=== PATIENT | male | born 1950 | race Caucasian/White ===

== ENCOUNTER 2018-01-10 13:44 | Inpatient (IN) | payer BC, MEDICARE ==
[2018-01-10] VITALS (10 sets, daily range): BP systolic 103–175; BP diastolic 58–94; PULSE 80–167; RESP 15–20; TEMP 97.9; O2SAT 94–97
[~2018-01-10] VITALS: Ht 170.2 cm; Wt 149.2 kg
[2018-01-10 14:25] LABS: AUTOMATED NEUTROPHIL # 13.9 TH/MM3 (1.8-7.7); BASOPHIL # 0.1 TH/MM3 (0-0.2); BASOPHIL % 0.8 % (0.0-2.0); EOSINOPHIL % 0.2 % (0.0-4.0); HEMATOCRIT 44.7 % (39.0-51.0); HEMOGLOBIN 15.2 GM/DL (13.0-17.0); LYMPH % 11.6 % (9.0-44.0); MEAN CELL VOLUME 86.1 FL (80.0-100.0); MEAN CORPUSCULAR HEMOGLOBIN 29.3 PG (27.0-34.0); MEAN PLATELET VOLUME 8.6 FL (7.0-11.0); MONO % 7.2 % (0.0-8.0); MONOCYTE # 1.2 TH/MM3 (0-0.9); NEUT % 80.2 % (16.0-70.0); PLATELET COUNT 364 TH/MM3 (150-450); RED BLOOD COUNT 5.19 MIL/MM3 (4.50-5.90); RED CELL DISTRIBUTION WIDTH 14.1 % (11.6-17.2); WHITE BLOOD COUNT 17.4 TH/MM3 (4.0-11.0)
--- NOTE | 2018-01-10 14:25 | PD ---
HPI Chief Complaint: Cardiac Complaint Time Seen by Provider: 14:01 Travel History International Travel<30 days: No Contact w/Intl Traveler<30days: No Traveled to known affect area: No History of Present Illness HPI The patient is a 67-year-old male who presents to the emergency department for chest pain, palpitations, mild shortness of breath. The patient recently traveled from [place] to the local area for the car races. The patient states that he had mild chest discomfort in the left upper chest yesterday while moving his leg is down to the car. He then had similar symptoms once again today while pumping gas. He felt like his heart was beating fast, he has some left-sided chest pressure, and mild shortness of breath. The patient states he is currently chest pain-free upon arrival, denies any dizziness, lightheadedness, shortness of breath upon arrival. He denies any known history of coronary artery disease, hypertension, hyperlipidemia, diabetes, or tobacco use. The patient does take a baby aspirin daily as well as Synthroid. Symptoms are moderate. He denies any history of pulmonary most of her DVT. He does not have a local primary physician. PFS Past Medical History Narrative Medical Hypothyroidism, prostate cancer Past Surgical History Narrative Surgical right shoulder surgery, tonsillectomy Social History Tobacco Use: No Allergies-Medications (Allergen,Severity, Reaction): Coded Allergies: No Known Allergies (Unverified , 01/10/18) Reported Meds & Prescriptions Reported Meds & Active Scripts Active Reported Metformin (Metformin HCl) 1,000 Mg Tab 1,000 Mg PO BIDPC Lisinopril-Hctz 20-12.5 Mg Tab 1 Tab PO DAILY Levothyroxine (Levothyroxine Sodium) 125 Mcg Tab 125 Mcg PO DAILY Adrienne Allergy (Fexofenadine HCl) 180 Mg Tab 180 Mg PO DAILY Flonase Nasal [place] (Fluticasone Nasal [place]) 50 Mcg/Act [place] 100 Mcg EACH NARE BID Review of Systems Except as stated in HPI: all other systems reviewed are Neg General / Constitutional: No: Fever HENT: No: Lightheadedness Cardiovascular: Positive: Chest Pain or Discomfort, Palpitations, Tachycardia, No: Diaphoresis Respiratory: Positive: Shortness of Breath Gastrointestinal: No: Nausea, Vomiting Musculoskeletal: No: Edema Neurologic: No: Dizziness Physical Exam Narrative GENERAL: Awake, alert, pleasant 67-year-old male who appears his stated age and is in no acute respiratory distress. SKIN: Focused skin assessment warm/dry. HEAD: Atraumatic. Normocephalic. EYES: Pupils equal and round. No scleral icterus. No injection or drainage. ENT: No nasal bleeding or discharge. Mucous membranes pink and moist. NECK: Trachea midline. No JVD. CARDIOVASCULAR: Regular, tachycardic with a heart rate in the 160s. RESPIRATORY: No accessory muscle use. Clear to auscultation. Breath sounds equal bilaterally. GASTROINTESTINAL: Abdomen soft, obese, no rebound tenderness. MUSCULOSKELETAL: No obvious deformities. No clubbing. No cyanosis. No edema. NEUROLOGICAL: Awake and alert. No obvious cranial nerve deficits. Motor grossly within normal limits. Normal speech. PSYCHIATRIC: Appropriate mood and affect; insight and judgment normal. Data Data Last Documented VS Vital Signs Date Time Temp Pulse Resp B/P (MAP) Pulse Ox O2 Delivery O2 Flow Rate FiO2 01/10/18 16:13 162 109/55 01/10/18 14:41 15 95 Room Air 01/10/18 13:45 97.9 Orders Orders Electrocardiogram (01/10/18 13:50) Basic Metabolic Panel (Bmp) (01/10/18 13:50) B-Type Natriuretic Peptide (01/10/18 13:50) Ckmb (Isoenzyme) Profile (01/10/18 13:50) Complete Blood Count With Diff (01/10/18 13:50) Magnesium (Mg) (01/10/18 13:50) Prothrombin Time / Inr (Pt) (01/10/18 13:50) Act Partial Throm Time (Ptt) (01/10/18 13:50) Troponin I (01/10/18 13:50) Chest, Pa & Lat (01/10/18 13:50) Ecg Monitoring (01/10/18 14:17) Bilateral Bp Monitoring (01/10/18 14:17) Iv Access Insert/Monitor (01/10/18 14:17) Oximetry (01/10/18 14:17) Oxygen Administration (01/10/18 14:17) Aspirin Chew (Aspirin Chew) (01/10/18 14:30) Sodium Chloride 0.9% Flush (Ns Flush) (01/10/18 14:30) Sodium Chlorid 0.9% 500 Ml Inj (Ns 500 M (01/10/18 14:30) Ct Pulmonary Angiogram (01/10/18 14:17) Diltiazem Inj (Cardizem Inj) (01/10/18 14:30) CKMB (01/10/18 14:16) CKMB% (01/10/18 14:16) Diltiazem Inj (Cardizem Inj) (01/10/18 15:45) Sodium Chloride 0.9% Flush (Ns Flush) (01/10/18 15:45) Iohexol 350 Inj (Omnipaque 350 Inj) (01/10/18 15:54) Diltiazem Inj (Cardizem Inj) (01/10/18 16:30) Sodium Chlorid 0.9% 500 Ml Inj (Ns 500 M (01/10/18 16:30) Admit Order (Ed Use Only) (01/10/18 17:15) Admit Order (Ed Use Only) (01/10/18 17:20) Labs Laboratory Tests Test 01/10/18 14:16 White Blood Count 17.4 TH/MM3 Red Blood Count 5.19 MIL/MM3 Hemoglobin 15.2 GM/DL Hematocrit 44.7 % Mean Corpuscular Volume 86.1 FL Mean Corpuscular Hemoglobin 29.3 PG Mean Corpuscular Hemoglobin Concent 34.0 % Red Cell Distribution Width 14.1 % Platelet Count 364 TH/MM3 Mean Platelet Volume 8.6 FL Neutrophils (%) (Auto) 80.2 % Lymphocytes (%) (Auto) 11.6 % Monocytes (%) (Auto) 7.2 % Eosinophils (%) (Auto) 0.2 % Basophils (%) (Auto) 0.8 % Neutrophils # (Auto) 13.9 TH/MM3 Lymphocytes # (Auto) 2.0 TH/MM3 Monocytes # (Auto) 1.2 TH/MM3 Eosinophils # (Auto) 0.0 TH/MM3 Basophils # (Auto) 0.1 TH/MM3 CBC Comment DIFF FINAL Differential Comment Prothrombin Time 10.3 SEC Prothromb Time International Ratio 1.0 RATIO Activated Partial Thromboplast Time 21.4 SEC Blood Urea Nitrogen 28 MG/DL Creatinine 1.33 MG/DL Random Glucose 388 MG/DL Calcium Level 8.6 MG/DL Magnesium Level 1.6 MG/DL Sodium Level 136 MEQ/L Potassium Level 4.1 MEQ/L Chloride Level 101 MEQ/L Carbon Dioxide Level 25.6 MEQ/L Anion Gap 9 MEQ/L Estimat Glomerular Filtration Rate 54 ML/MIN Total Creatine Kinase 107 U/L Creatine Kinase MB 8.3 NG/ML Troponin I 0.39 NG/ML B-Type Natriuretic Peptide 410 PG/ML MDM Medical Decision Making Medical Screen Exam Complete: Yes Emergency Medical Condition: Yes Medical Record Reviewed: Yes Interpretation(s) EKG reveals atrial flutter with 2:1 block at a rate in the 160s versus sinus tachycardia. RSR prime in V1. S1Q3. EKG #2 reveals atrial flutter versus accelerated junctional rhythm. RSR prime consistent with right bundle-branch block. Last Impressions Chest X-Ray 01/10/18 1350 Signed Impressions: Service Date/Time: Wednesday, January 10, 2018 14:24 - CONCLUSION: No acute disease. Jason Vega Jr., MD Laboratory Tests Test 01/10/18 14:16 White Blood Count 17.4 TH/MM3 Red Blood Count 5.19 MIL/MM3 Hemoglobin 15.2 GM/DL Hematocrit 44.7 % Mean Corpuscular Volume 86.1 FL Mean Corpuscular Hemoglobin 29.3 PG Mean Corpuscular Hemoglobin Concent 34.0 % Red Cell Distribution Width 14.1 % Platelet Count 364 TH/MM3 Mean Platelet Volume 8.6 FL Neutrophils (%) (Auto) 80.2 % Lymphocytes (%) (Auto) 11.6 % Monocytes (%) (Auto) 7.2 % Eosinophils (%) (Auto) 0.2 % Basophils (%) (Auto) 0.8 % Neutrophils # (Auto) 13.9 TH/MM3 Lymphocytes # (Auto) 2.0 TH/MM3 Monocytes # (Auto) 1.2 TH/MM3 Eosinophils # (Auto) 0.0 TH/MM3 Basophils # (Auto) 0.1 TH/MM3 CBC Comment DIFF FINAL Differential Comment Prothrombin Time 10.3 SEC Prothromb Time International Ratio 1.0 RATIO Activated Partial Thromboplast Time 21.4 SEC Blood Urea Nitrogen 28 MG/DL Creatinine 1.33 MG/DL Random Glucose 388 MG/DL Calcium Level 8.6 MG/DL Magnesium Level 1.6 MG/DL Sodium Level 136 MEQ/L Potassium Level 4.1 MEQ/L Chloride Level 101 MEQ/L Carbon Dioxide Level 25.6 MEQ/L Anion Gap 9 MEQ/L Estimat Glomerular Filtration Rate 54 ML/MIN Total Creatine Kinase 107 U/L Creatine Kinase MB 8.3 NG/ML Troponin I 0.39 NG/ML B-Type Natriuretic Peptide 410 PG/ML CT pulmonary angiogram reveals no acute intrathoracic process. In particular no pulmonary emboli. Significant coronary artery and atherosclerotic calcifications. Differential Diagnosis Differential diagnosis includes atrial flutter with RVR, atrial fibrillation with RVR, sinus tachycardia, tachycardia arrhythmia, electrolyte abnormality, pulmonary embolism. Narrative Course IV was established, labs are drawn and sent, and the patient was placed on cardiac telemetry monitoring and continuous pulse oximetry monitoring. EKG was ordered and interpreted. Chest x-ray was obtained. The patient was administered Cardizem [address] pulmonary angiogram was ordered as the patient has been traveling with new tachycardia, atrial flutter versus sinus tachycardia. Chest x-rays unremarkable. The patient's heart rate initially came down into the 90s and 90s after Cardizem, however, elevated once again into the 90s and 100s. Cardizem drip was started, however, patient's heart rate went back into the 160s. The patient was administered a second dose of IV fluids and Cardizem. CT pulmonary angiogram was negative. The patient's troponin is positive at 0.39. The patient did receive aspirin in the emergency department. The patient will be admitted for new-onset atrial flutter with RVR and elevated troponin. Critical Care Narrative Aggregate critical care time was 35 minutes. Time to perform other separately billable procedures was not included in the critical care time. My time did not include minutes spent treating any other patients simultaneously or on activities that did not directly contribute to the patient's treatment. The services I provided to this patient were to treat and/or prevent clinically significant deterioration that could result in: Pulmonary edema, cardiomyopathy , arrhythmia, flash pulmonary edema. I provided critical care services requiring my management, as noted below: Chart data review, documentation time, medication orders and management, vital sign assessments/reviewing monitor data, ordering and reviewing lab tests, ordering and interpreting/reviewing x-rays and diagnostic studies, care of the patient and discussion of the patient with the admitting physicians. Physician Communication Physician Communication The on-call medical service was paged for admission. I discussed the patient with Dr. Delvis Biswas who agrees with admission. Diagnosis Primary Impression: Atrial flutter with rapid ventricular response Additional Impressions: Elevated troponin Hyperglycemia Admitting Information Admitting Physician Requests: Admit Condition: Stable Rogerio Tyler MD Jan 10, 2018 14:24
[2018-01-10] MEDS ORDERED: SODIUM CHLORIDE 0.9% FLUSH 10 ML FLUSH IVF PRN (14:30)
[2018-01-10] MEDS ORDERED: SODIUM CHLORID 0.9% 500 ML INJ 500 ML IV ONE ×2 (14:30→16:30)
[2018-01-10] MEDS ORDERED: DILTIAZEM HCL 25 MG/5 ML VIAL IV ONE ×2 (14:30→16:30)
[2018-01-10] MEDS ORDERED: ASPIRIN 81 MG CHEW TAB PO ONE (14:30)
[2018-01-10] MEDS ORDERED: FEXO15TA PO (14:31)
[2018-01-10] MEDS ORDERED: FLUT1SPR5 EACH NARE (14:31)
--- NOTE | 2018-01-10 14:39 | RADRPT ---
EXAM DATE/TIME: 01/10/2018 14:24 [facility] COMPARISON: No previous studies available for comparison. INDICATIONS : Chest pressure and discomfort since yesterday. MEDICAL HISTORY : None. SURGICAL HISTORY : None. ENCOUNTER: Initial ACUITY: 2 days PAIN SCORE: 3/10 LOCATION: Bilateral chest FINDINGS: PA and lateral views of the chest demonstrate the lungs to be symmetrically aerated without evidence of mass, infiltrate or effusion. The cardiomediastinal contours are unremarkable. Mild scoliotic cur vature. Osseous structures are intact. CONCLUSION: No acute disease. Jason Vega Jr., MD on January 10, 2018 at 14:35 Board Certified Radiologist. This report was verified electronically.
[2018-01-10 14:40] LABS: PROTHROMBIN TIME - PATIENT 10.3 SEC (9.8-11.6)
[2018-01-10] MEDS ORDERED: LISI20TA PO (14:40)
[2018-01-10] MEDS ORDERED: METF1000 PO (14:40)
[2018-01-10] MEDS ORDERED: LEVO125T4 PO (14:40)
[2018-01-10 15:26] LABS: BICARBONATE 25.6 MEQ/L (21.0-32.0); BLOOD UREA NITROGEN 28 MG/DL (7-18); CALCIUM 8.6 MG/DL (8.5-10.1); CHLORIDE 101 MEQ/L (98-107); CREATININE 1.33 MG/DL (0.60-1.30); GLOMERULAR FILTRATION RATE 54 ML/MIN (>89); GLUCOSE,RANDOM 388 MG/DL (74-106); MAGNESIUM 1.6 MG/DL (1.5-2.5); SODIUM (NA) 136 MEQ/L (136-145); TROPONIN I 0.39 NG/ML (0.02-0.05)
[2018-01-10] MEDS ORDERED: SODIUM CHLORIDE 0.9% FLUSH 10 ML FLUSH IV FLUSH PRN ×2 (15:45→18:15)
[2018-01-10] MEDS ORDERED: DILTIAZEM INJ 125 MG in SODIUM CHLORIDE 0.9% INJ 100 ML IV PRN (15:45)
[2018-01-10] MEDS ORDERED: IOHEXOL 350 MG/ML 10 ML VIAL (for RAD DIAG) IVCONTRAST ONE (15:54)
--- NOTE | 2018-01-10 16:13 | RADRPT ---
EXAM DATE/TIME: 01/10/2018 15:50 [facility] COMPARISON: No previous studies available for comparison. INDICATIONS : Left chest pressure. IV CONTRAST: 74 cc Omnipaque 350 (iohexol) IV RADIATION DOSE: 10.98 CTDIvol (mGy) MEDICAL HISTORY : None SURGICAL HISTORY : None. ENCOUNTER: Initial ACUITY: 2 days PAIN SCALE: 4/10 LOCATION: Left chest TECHNIQUE: Volumetric scanning of the chest was performed using a pulmonary embolism protocol MIP images were re constructed. Using automated exposure control and adjustment of the mA and/or kV according to patien t size, radiation dose was kept as low as reasonably achievable to obtain optimal diagnostic quality images. DICOM format image data is available electronically for review and comparison. Follow-up recommendations for detected pulmonary nodules are based at a minimum on nodule size and pa tient risk factors according to Fleischner Society Guidelines. FINDINGS: PULMONARY ARTERIES: No filling defects are seen in the pulmonary arteries through the segmental level. LUNGS: There is no consolidation or pneumothorax . No concerning pulmonary nodule is visualized. PLEURAE: There is no pleural thickening or pleural effusion. MEDIASTINUM: There is good visualization of the great vessels of the middle mediastinum. No evidence of mediastin al or hilar adenopathy/mass. Heart is normal in size without pericardial effusion. Coronary artery an d aortic atherosclerotic calcifications noted. MUSCULOSKELETAL: Within normal limits for patient age. MISCELLANEOUS: A degenerative thoracic spine. CONCLUSION: 1. No acute intrathoracic process. In particular, no pulmonary emboli. 2. Significant coronary artery and aortic atherosclerotic calcifications. Jason Vega Jr., MD on January 10, 2018 at 16:04 Board Certified Radiologist. This report was verified electronically.
[2018-01-10] MEDS ORDERED: MORPHINE SULFATE 2 MG/ML INJ IV PUSH PRN ×2 (18:15)
[2018-01-10] MEDS ORDERED: ONDANSETRON HCL 4 MG/2 ML VIAL IVP PRN (18:15)
[2018-01-10] MEDS ORDERED: MAGNESIUM HYDROXIDE SUSP 30 ML CUP PO PRN (18:15)
[2018-01-10] MEDS ORDERED: NALOXONE HCL 0.4 MG/ML AMP IV PUSH PRN (18:15)
--- NOTE | 2018-01-10 19:39 | HHI.HP ---
[facility] Primary [facility] Physician Unknown Admission Diagnosis atrial flutter with RVR, elevated troponin Diagnoses: (1) Atrial flutter with rapid ventricular response Diagnosis: Principal (2) Elevated troponin Diagnosis: Principal (3) Hyperglycemia Diagnosis: Principal Travel History International Travel<30 Days: No Contact w/Intl Traveler <30 Da: No Traveled to Known Affected Are: No History of Present Illness Mr. Garcia is a 67-year-old male. He came into the hospital after having recurrent episodes of tachycardia, palpitations, and chest tightness. He is found to be in atrial flutter with RVR. He started on a diltiazem drip. Diltiazem drip has assisted in slowing his heart rate when seen in the ER his heart rate is between 80 and 100 bpm. Today his knowledge she has no past cardiac history. She has not had arrhythmias before. No prior history of A. fib or atrial flutter. He does have hypothyroidism at baseline. His thyroid has not been a problem recently. No recent changes in medications. When seen he is not having any chest pain. He is having improvement with rate control on IV diltiazem. Review of Systems Constitutional: DENIES: Fatigue, Fever, Chills, Night Sweats Eyes: DENIES: Blurred vision, Diplopia, Eye inflammation, Eye pain Ears, nose, mouth, throat: DENIES: Tinnitus, Hearing loss, Vertigo, Nasal discharge Respiratory: DENIES: Cough, Wheezing, Shortness of breath Cardiovascular: COMPLAINS OF: Chest pain, Palpitations, Dyspnea on Exertion, DENIES: Syncope Gastrointestinal: DENIES: Abdominal pain, Black stools, Bloody stools, Constipation Musculoskeletal: DENIES: Joint pain, Muscle aches, Stiffness Integumentary: DENIES: Abnormal pigmentation, Nail changes, Pruritus, Rash Hematologic/lymphatic: DENIES: Bruising, Lymphadenopathy Immunologic/allergic: DENIES: Eczema, Urticaria Neurologic: DENIES: Abnormal gait, Headache, Paresthesias Psychiatric: DENIES: Anxiety, Confusion, Hallucinations Past Family Social History Past Medical History Hypothyroidism History of prostate cancer Diabetes mellitus type 2 Past Surgical History Right shoulder surgery Tonsillectomy Reported Medications Reported Meds & Active Scripts Active Reported Metformin (Metformin HCl) 1,000 Mg Tab 1,000 Mg PO BIDPC Lisinopril-Hctz 20-12.5 Mg Tab 1 Tab PO DAILY Levothyroxine (Levothyroxine Sodium) 125 Mcg Tab 125 Mcg PO DAILY Adrienne Allergy (Fexofenadine HCl) 180 Mg Tab 180 Mg PO DAILY Flonase Nasal [place] (Fluticasone Nasal [place]) 50 Mcg/Act [place] 100 Mcg EACH NARE BID Allergies: Coded Allergies: No Known Allergies (Unverified , 01/10/18) Active Ordered Medications Administered Medications Medications (Trade) Dose Ordered Sig/Hien Route PRN Reason Start Time Stop Time Status Last Admin Dose Admin Diltiazem HCl 125 mg/Sodium Chloride 125 ml @ 5 mls/hr TITRATE PRN IV tachycardia 01/10/18 15:45 01/10/18 16:13 Family History Myocardial infarction mother Myocardial infarction in father Social History No smoking No drinking of alcohol No illicit drug abuse Physical Exam Vital Signs Vital Signs Date Time Temp Pulse Resp B/P (MAP) Pulse Ox O2 Delivery O2 Flow Rate FiO2 01/10/18 19:15 89 18 96 Room Air 01/10/18 19:14 89 18 122/64 (83) 96 Room Air 01/10/18 18:00 88 114/65 (81) 01/10/18 17:00 80 116/58 (77) 01/10/18 16:30 146 129/62 (84) 01/10/18 16:13 162 109/55 01/10/18 15:15 86 15 133/61 (85) 94 Room Air 01/10/18 14:41 86 15 125/61 (82) 95 Room Air 01/10/18 13:45 97.9 167 20 175/78 (110) 95 Room Air Physical Exam GENERAL: NAD, A&Ox3 HEAD: Normocephalic. NECK: Supple, trachea midline. No lymphadenopathy. EYES: No scleral icterus. No injection or drainage. CARDIOVASCULAR: Tachycardia, regular rhythm without murmurs, gallops, or rubs. RESPIRATORY: Breath sounds equal bilaterally. No accessory muscle use. GASTROINTESTINAL: Abdomen soft, non-tender, nondistended. MUSCULOSKELETAL: No cyanosis, or edema. SKIN: Warm and dry. NEURO: No focal neurological deficitis. Laboratory Laboratory Tests Test 01/10/18 14:16 White Blood Count 17.4 Red Blood Count 5.19 Hemoglobin 15.2 Hematocrit 44.7 Mean Corpuscular Volume 86.1 Mean Corpuscular Hemoglobin 29.3 Mean Corpuscular Hemoglobin Concent 34.0 Red Cell Distribution Width 14.1 Platelet Count 364 Mean Platelet Volume 8.6 Neutrophils (%) (Auto) 80.2 Lymphocytes (%) (Auto) 11.6 Monocytes (%) (Auto) 7.2 Eosinophils (%) (Auto) 0.2 Basophils (%) (Auto) 0.8 Neutrophils # (Auto) 13.9 Lymphocytes # (Auto) 2.0 Monocytes # (Auto) 1.2 Eosinophils # (Auto) 0.0 Basophils # (Auto) 0.1 CBC Comment DIFF FINAL Differential Comment Prothrombin Time 10.3 Prothromb Time International Ratio 1.0 Activated Partial Thromboplast Time 21.4 Blood Urea Nitrogen 28 Creatinine 1.33 Random Glucose 388 Calcium Level 8.6 Magnesium Level 1.6 Sodium Level 136 Potassium Level 4.1 Chloride Level 101 Carbon Dioxide Level 25.6 Anion Gap 9 Estimat Glomerular Filtration Rate 54 Total Creatine Kinase 107 Creatine Kinase MB 8.3 Troponin I 0.39 B-Type Natriuretic Peptide 410 Result Diagram: 01/10/18 1416 01/10/18 1416 Caprini VTE Risk Assessment Caprini VTE Risk Assessment: Mod/High Risk (score >= 2) Caprini Risk Assessment Model Point Value = 1 Point Value = 2 Point Value = 3 Point Value = 5 Age 41-60 Minor surgery BMI > 25 kg/m2 Swollen legs Varicose veins or History of unexplained or recurrent spontaneous Oral contraceptives or hormone replacement Sepsis (< 1 month) Serious lung disease, including pneumonia (< 1 month) Abnormal pulmonary function Acute myocardial infarction Congestive heart failure (< 1 month) History of inflammatory bowel disease Medical patient at bed rest Age 61-74 Arthroscopic surgery Major open surgery (> 45 min) Laparoscopic surgery (> 45 min) Malignancy Confined to bed (> 72 hours) Immobilizing plaster cast Central venous access Age >= 75 History of VTE Family history of VTE Factor V Leiden Prothrombin [id number] Lupus anticoagulant Anticardiolipin antibodies Elevated serum homocysteine Heparin-induced thrombocytopenia Other congenital or acquired thrombophilia Stroke (< 1 month) Elective arthroplasty Hip, pelvis, or leg fracture Acute spinal cord injury (< 1 month) Prophylaxis Regimen Total Risk Factor Score Risk Level Prophylaxis Regimen 0-1 Low Early ambulation 2 Moderate Order ONE of the following: *Sequential Compression Device (SCD) *Heparin 5000 units SQ BID 3-4 Higher Order ONE of the following medications: *Heparin 5000 units SQ TID *Enoxaparin/Lovenox 40 mg SQ daily (WT < 150 kg, CrCl > 30 mL/min) *Enoxaparin/Lovenox 30 mg SQ daily (WT < 150 kg, CrCl > 10-29 mL/min) *Enoxaparin/Lovenox 30 mg SQ BID (WT < 150 kg, CrCl > 30 mL/min) AND/OR *Sequential Compression Device (SCD) 5 or more Highest Order ONE of the following medications: *Heparin 5000 units SQ TID (Preferred with Epidurals) *Enoxaparin/Lovenox 40 mg SQ daily (WT < 150 kg, CrCl > 30 mL/min) *Enoxaparin/Lovenox 30 mg SQ daily (WT < 150 kg, CrCl > 10-29 mL/min) *Enoxaparin/Lovenox 30 mg SQ BID (WT < 150 kg, CrCl > 30 mL/min) AND *Sequential Compression Device (SCD) Assessment and Plan Problem List: (1) Atrial flutter with rapid ventricular response ICD Code: I48.92 - Unspecified atrial flutter Status: Acute (2) Elevated troponin ICD Code: R74.8 - Abnormal levels of other serum enzymes Status: Acute (3) Hyperglycemia ICD Code: R73.9 - Hyperglycemia, unspecified Status: Acute Assessment and Plan 67-year-old male admitted secondary to new onset atrial flutter New onset atrial flutter Chest pain Continue IV diltiazem Follow on telemetry Start p.o. diltiazem in a.m. and attempt to wean Consult cardiology Evaluate for ACS Follow cardiac enzymes Aspirin daily When necessary oxygen When necessary morphine for pain. When necessary nitroglycerin Follow on telemetry Cardiology consult Start Lovenox Hyperglycemia Diabetes mellitus type 2 Follow blood sugars Insulin sliding scale Diabetic diet History of prostate cancer Follows in outpatient Hypothyroidism No change to present treatment at this point Obtain thyroid panel DVT prophylaxis Lovenox Physician Certification 2 Midnight Certification Type: Admission for Inpatient Services Order for Inpatient Services The services are ordered in accordance with Medicare regulations or non- Medicare payer requirements, as applicable. In the case of services not specified as inpatient-only, they are appropriately provided as inpatient services in accordance with the 2-midnight benchmark. Estimated LOS (days): 2 days is the estimated time the patient will need to remain in the hospital, assuming treatment plan goals are met and no additional complications. Post-Hospital Plan: Home Delvis Biswas MD Jan 10, 2018 19:39
[2018-01-10] MEDS ORDERED: GLUCAGON 1 MG/ML VIAL OTHER PRN (19:45)
[2018-01-10] MEDS ORDERED: DEXTROSE 50% IN WATER 50 ML VIAL(D50) IV PUSH PRN (19:45)
[2018-01-10] MEDS ORDERED: ENOXAPARIN SODIUM 40 MG/0.4 ML SYRINGE SQ SCH (21:00)
[2018-01-10] MEDS: SODIUM CHLORIDE 0.9% FLUSH 10 ML FLUSH IV FLUSH SCH (21:00)
[2018-01-10 21:02] LABS: TROPONIN I 13.2 NG/ML (0.02-0.05)
[2018-01-10] MEDS ORDERED: HEPARIN SODIUM - IV 10,000 UNITS/10 ML VIAL IV PUSH ONE (21:30)
[2018-01-10] MEDS: FLUTICASONE PROPIONATE 50 MCG/ACT 16 GM NASAL SPRAY EACH NARE SCH (21:54)
[2018-01-10] MEDS: INSULIN ASPART SUPPLEMENTAL SCALE SQ SCH (21:55)
[2018-01-10] MEDS: HEPARIN-D5W 25,000 U/250 ML 250 ML IV PRN (22:01)
[2018-01-11] VITALS (18 sets, daily range): BP systolic 103–138; BP diastolic 55–75; PULSE 57–94; RESP 12–21; TEMP 98–98.3; O2SAT 95–97
[2018-01-11] MEDS ORDERED: HEPARIN SODIUM - IV 10,000 UNITS/10 ML VIAL IV PUSH PRN ×2 (03:30)
[2018-01-11 04:01] LABS: TROPONIN I 12.9 NG/ML (0.02-0.05)
[2018-01-11 05:15] LABS: BASOPHIL % 0.3 % (0.0-2.0); EOSINOPHIL # 0.1 TH/MM3 (0-0.4); HEMATOCRIT 43.1 % (39.0-51.0); HEMOGLOBIN 14.6 GM/DL (13.0-17.0); LYMPH % 16.9 % (9.0-44.0); LYMPHOCYTE # 2.3 TH/MM3 (1.0-4.8); MEAN CELL VOLUME 85.7 FL (80.0-100.0); MEAN CORPUSCULAR HGB CONC 33.8 % (32.0-36.0); MEAN PLATELET VOLUME 8.8 FL (7.0-11.0); MONO % 7.8 % (0.0-8.0); PLATELET COUNT 319 TH/MM3 (150-450); RED BLOOD COUNT 5.03 MIL/MM3 (4.50-5.90); RED CELL DISTRIBUTION WIDTH 14.1 % (11.6-17.2); WHITE BLOOD COUNT 13.4 TH/MM3 (4.0-11.0)
[2018-01-11 05:38] LABS: ALBUMIN 3.2 GM/DL (3.4-5.0); ALKALINE PHOSPHATASE 127 U/L (45-117); ALT (GPT) 16 U/L (12-78); AST (GOT) 48 U/L (15-37); BICARBONATE 27.4 MEQ/L (21.0-32.0); BLOOD UREA NITROGEN 24 MG/DL (7-18); CALCIUM 8.5 MG/DL (8.5-10.1); CHLORIDE 103 MEQ/L (98-107); CREATININE 1.04 MG/DL (0.60-1.30); GLOMERULAR FILTRATION RATE 71 ML/MIN (>89); GLUCOSE,RANDOM 243 MG/DL (74-106); SODIUM (NA) 137 MEQ/L (136-145); TOTAL BILIRUBIN ADULT 0.4 MG/DL (0.2-1.0); TOTAL PROTEIN 6.5 GM/DL (6.4-8.2)
[2018-01-11] MEDS: LEVOTHYROXINE SODIUM 125 MCG TAB PO SCH (06:15)
[2018-01-11 07:52] LABS: THYROXINE (T4) 10.8 MCG/DL (4.5-12.1)
[2018-01-11] MEDS ORDERED: DIAZEPAM 5 MG TAB PO SCH (08:00)
[2018-01-11] MEDS: INSULIN ASPART SUPPLEMENTAL SCALE SQ SCH ×4 (08:00→21:00)
[2018-01-11] MEDS: NITROGLYCERIN 2% OINT 1 GM PACKET TOPICAL SCH ×4 (08:00→23:24)
[2018-01-11] MEDS ORDERED: diphenhydrAMINE HCL 50 MG CAP PO SCH (08:00)
[2018-01-11 08:01] LABS: FREE T3 2.19 PG/ML (2.18-3.98)
--- NOTE | 2018-01-11 08:49 | MB ---
cc: JABIER MCKEON M.D. DATE OF CONSULTATION 01/11/2018 REASON FOR CONSULTATION Evaluation of atrial fibrillation and a non-STEMI. HISTORY OF PRESENT ILLNESS Ga Garcia is a 67-year-old man well with no prior history of cardiac disease. He has been diagnosed with diabetes. Denies hypertension, although he is on an REECE inhibitor. He has no family history of cardiac disease. He has never smoked. His lipid status is unknown to us. The patient has been feeling uncomfortable with a feeling in his left chest like a pressure, worse with walking. He came in with atrial fibrillation with RVR. [place] is [place] of [place] and here for the [employer]. He had to receive IV Cardizem to bring his heart rate down to normal. His chest discomfort is better. His troponin has gone up significantly. He denies having chest pain prior to Tuesday. Denies any prior history of cardiac arrhythmia. PAST MEDICAL HISTORY 1. Diabetes. 2. Questionable hypertension. 3. Lipid status unknown. 4. He says he has been tested for sleep apnea and does not have it. 5. Morbid obesity. PAST SURGICAL HISTORY 1. Cryo procedure for prostate cancer at [facility]. 2. Right shoulder surgery. 3. Hiatal hernia surgery. 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 He is visiting from [place] of state for the [employer]. ALLERGIES None. PHYSICAL EXAMINATION GENERAL: A morbidly obese pleasant white male in no acute distress. VITAL SIGNS: Charted. HEENT: Unremarkable. NECK: No JVD. No bruits. CHEST: Clear to auscultation. CARDIAC: S1, S2, irregular rate and rhythm with a 1/6 systolic murmur. ABDOMEN: Morbidly obese. No masses appreciable. EXTREMITIES: Slight edema. Pulses are intact. LABORATORY Creatinine is 1.04. Troponin has peaked at 13.2. Hematocrit 43.1. EKG EKG when he came in showed atrial fibrillation/atrial flutter with a very rapid rate. A second EKG showed slower rate with ST depressions. His last EKG had ST depressions, looked a little improved. IMAGING Chest x-ray is showing no acute disease. CTA done at 4:11 p.m. yesterday shows no pulmonary emboli, but significant coronary artery and aortic atherosclerotic calcifications. IMPRESSION 1. New onset atrial fibrillation with RVR; currently controlled on IV Cardizem drip. 2. Classic anginal symptoms with strong evidence for a non-ST segment elevation OK with a very elevated troponin. PLAN The plan is to perform a diagnostic cath with possible intervention this morning. Informed consent has been obtained. I explained the complexity of blood thinners treating atrial fibrillation as well as coronary disease. I think it is likely he will need some type of revascularization. Will plan to do this radially due to the morbid obesity. Further therapy to be determined. MD RADHA Andino/ANTOINETTE /7:49 AM /8:25 AM
[2018-01-11] MEDS: SODIUM CHLORIDE 0.9% FLUSH 10 ML FLUSH IV FLUSH SCH ×2 (09:00→21:00)
[2018-01-11] MEDS ORDERED: LISINOPRIL 20 MG TAB PO SCH (09:00)
[2018-01-11] MEDS ORDERED: DILTIAZEM-CD 120 MG CAP ER PO SCH (09:00)
[2018-01-11] MEDS ORDERED: HYDROCHLOROTHIAZIDE 12.5 MG CAP PO SCH (09:00)
[2018-01-11] MEDS: FLUTICASONE PROPIONATE 50 MCG/ACT 16 GM NASAL SPRAY EACH NARE SCH ×2 (09:00→21:04)
[2018-01-11] MEDS ORDERED: NITROGLYCERIN INJ 5 ML ONE (09:01)
[2018-01-11] MEDS ORDERED: MIDAZOLAM HCL 2 MG/2 ML VIAL ONE ×2 (09:01→09:27)
[2018-01-11] MEDS ORDERED: HEPARIN SODIUM - IV 10,000 UNITS/10 ML VIAL ONE (09:01)
[2018-01-11] MEDS ORDERED: HEPARIN-NS/PF FLUSH BAG 1,000 ML IV FLUSH ONE (09:01)
[2018-01-11] MEDS ORDERED: VERAPAMIL HCL 5 MG/2 ML VIAL ONE (09:12)
--- NOTE | 2018-01-11 10:02 | CATHPROC ---
[facility] HIS Report Study Information Study Number Admission Scheduled Start Study Start [id number] Jan 10 2018 5:20PM 01/11/2018 Jan 11 2018 8:45AM [place] Cardiac Catheterization Admit Source Facility Department Emergency department [facility] - Medical Office Secretary Physician and Clinical Staff Initial MD Lopez, Enrique Retail Marketing Coordinator Carlee Oh,MARI Other cathlab, cathlab Recorder Liborio Esquivel RCIS(BS) Scrub Juan BaezRT(R) Procedures Performed Procedure Location (Site) Vessel Name Coronary Angiograms LCA Left Coronary L Heart Cath LV Gram-hand inj. LV LV Ventricle Equipment Time Severity Of Illness Coordinator Description Size Mfg Part Number Used/Scraped TRANSDUCER, TRUWAVE [id number] 08:55 ARIAS MURILLO * Used W/STOCKCOCK *[id number] [id number] *[id number] [id number] *[id number] 08:55 MALLINCKRODT SYRINGE, ANGIOMAT 150ML 150ML *[id number] Used 2SUB [id number] 08:55 [employer] PACK, CCL CUSTOM * Used *[id number] 08:55 [employer] SUPPORT, ARTERIAL ADULT [id number] *[id number] Used [id number] 08:55 [employer] PACER PEN, SKIN DUAL W/ RULER * Used *[id number] 09:45 mascotsecret 30 GINO INDEFLATOR Used *[id number] BAND, RADIAL COMPRESSION TR [id number] 09:50 mascotsecret 29CM Used LARGE 29 *[id number] 08:55 mascotsecret WIRE, EXCHANGE 260CM 3MMJ 260CM Used *[id number] 08:55 NAMIC MANIFOLD, 4 PORT * Used *[id number] 08:55 NYCOMED OMNIPAQUE, 350 MG, 100ML 100ML [id number] Used [id number] 08:55 Infectious BLANKET,WARM AIR CCL * Used *[id number] 08:55 Infectious JELCO NEEDLE 4056 *[id number] Used CATHETER, FR5 OPTITORQUE [id number] 09:15 [employer] MEDICAL FR 5 Used RADIAL TIG 4.0 *[id number] SHEATH, FR6 TRANSRADIAL [id number] 08:55 TERUMO MEDICAL FR 6 Used SLENDER 10CM *[id number] History: Current Medications Medication Dosage/Unit Route Frequency Last Date/Time Taken ASA LISINOPRIL History: Allergies Allergy Reaction No Known Allergies History: Risk Factors Family History of Hypertension Dyslipidemia Previous MT Previous Heart Failure Premature CAD Yes No Yes No No Prior Valve Prior PCI Prior CABG Surgery No No No Cerebrovascular Peripheral Artery Chronic Lung On Dialysis Diabetes Diabetes Therapy Disease Disease Disease No No No No Yes Oral History: Symptoms/Diagnosis Selection Items Chest pain History: Stress Tests Stress or Imaging Studies Performed No History: Other Disease Selection Items HTN History: Other Current Smoker No Labs Hgb (g/dl) Hct (%) WBC (l/cumm) Platelets (thousands) 11.60-17.00 35.00-51.00 4.00-11.00 150.00-450.00 14.6 43.1 13.4 319 Glucose (mg/dl) BUN (mg/dl) Creatinine (mg/dl) BUN:Creatinine (1:x) 74.00-106.00 7.00-18.00 0.50-1.30 10.00-20.00 243 24 1.0 24 Na (meq/l) K (meq/l) 136.00-145.00 3.50-5.10 134 4 INR (PTT:PT) 0.90-1.10 1 Troponin I (ng/ml) CPK (u/l) CPK-MB (ng/ML) 0.02-0.05 26.00-308.00 0.50-3.60 12.9 370 10.8 Medication Medication Total Dose (Bolus/Oral) Medication Total Dosage/Unit 1% XYLOCAINE 3 mL RADIAL COCKTAIL 5 mL (Bolus) VERSED 4 mg Medications (Bolus/Oral) Medication Time Given Dosage/Unit Administered By Reason VERSED 01/11/2018 9:23:18 AM 1 mg Carlee Oh 1 mg VERSED given in lab by Carlee Oh, RN in Left Antecubital via Peripheral IV. Ordered by Enrique Chavez. VERSED 01/11/2018 9:24:45 AM 1 mg Carlee Oh 1 mg VERSED given in lab by Carlee Oh, RN in Left Antecubital via Peripheral IV. Ordered by Enrique Chavez. 1% XYLOCAINE 01/11/2018 9:26:30 AM 3 mL Enrique Lopez 3 mL 1% XYLOCAINE given in lab by Enrique Lopez in Right Radial via Subcutaneous. Ntg 200mcg Verapamil 2.5mg Heparin RADIAL COCKTAIL 01/11/2018 9:27:52 AM 5 mL (Bolus) Enrique Lopez 2500U 5 mL (Bolus) RADIAL COCKTAIL given in lab by Enrique Lopez in Right Radial via Radial. Using [Solutio n Name]. Reason: Ntg 200mcg Verapamil 2.5mg Heparin 2500U. VERSED 01/11/2018 9:28:15 AM 1 mg Carlee Oh 1 mg VERSED given in lab by Carlee Oh RN in Left Antecubital via Peripheral IV. Ordered by Enrique Chavez. VERSED 01/11/2018 9:44:45 AM 1 mg Carlee Oh 1 mg VERSED given in lab by Carlee Oh, MARI in Left Antecubital via Peripheral IV. Ordered by Enrique Chavez. Medication (Drip) Medication Time Given Dosage/Unit Concentration/Unit Diluent (ml) Solution CARDIZEM 01/11/2018 8:56:38 AM 5 mg/hr g Patient arrived on 5 mg/hr CARDIZEM in Left Antecubital via Peripheral IV. Pump/Drip Flow = 0 ml/hr u sing [Solution Name]. CARDIZEM 01/11/2018 9:22:58 AM 10 mg/hr g 10 mg/hr CARDIZEM given in lab by Carlee Oh, MARI in Left Antecubital via Peripheral IV. Pump/Dri p Flow = 0 ml/hr using [Solution Name]. Ordered by Enrique Lopez. CARDIZEM 01/11/2018 9:26:20 AM 10 mg 10 mg CARDIZEM given in lab by Carlee Oh, MARI in Left Antecubital via Peripheral IV. Ordered by Enrique Lopez. Initial Case Assessment Cardiovascular HR Rhythm NIBP Chest Pain 106 afib 124/103 0 Edema Present Skin color Skin None Normal Warm Dry Circulatory - Right Pulses Dorsalis Pedis Femoral Radial 1 3 3 Scale (0,1,2,3,4,d) Scale (0,1,2,3,4,d) Neurological State Oriented to time-place- Alert Moves all extremities person Respiration - General Respiration Rate SpO2 (%) (B/min) 15 94 Final Case Assessment Cardiovascular HR Rhythm NIBP Chest Pain 82 afib 140/89 0 Edema Present Skin color Skin None Normal Warm Dry Circulatory - Right Pulses Dorsalis Pedis Femoral Radial 1 3 3 Scale (0,1,2,3,4,d) Scale (0,1,2,3,4,d) Neurological State Oriented to time-place- Alert Moves all extremities person Respiration - General Respiration Rate SpO2 (%) (B/min) 15 97 Chronological Log Time Study Chronological Log 8:44:47 Patient arrived via Bed. Heparin drip DCed per MD upon greens picker. 8:44:48 Patient Name, D.O.B, / Armband Verified By R.N. 8:44:49 Consent signed by the physician and the patient and verified by the Medical Office Secretary staff. 8:44:50 Pre-op and post- op instructions given; patient acknowledges understanding of instructions. 8:44:53 Allens test performed on the right radial and ulnar artery. 8:44:54 Patient has been NPO for Less than 6Hrs. 8:44:59 Skin Breakdown- none per patient 8:45:01 Patient has been NPO for Less than 6Hrs. 8:45:05 Patient Warmer Placed on the Table. 8:45:07 [place] Prominences Protected 8:45:08 A # 18 IV was noted in the Antecubital (left). Grade = 0 8:45:15 A # 20 IV was noted in the Hand (right). Grade = 0 Vitals capture started with the following parameters, Patient=Adult, Interval=5 min, Initial Pre umook=168 mmHg, 8:54:29 Deflation Rate=5 mmHg, Cuff placed on Right Ankle 8:55:04 HR=95 bpm, NMPK=991/103 mmhg, SpO2=96.0 %, Resp=15 B/min, Pain=0, Alecia=10, Dawn=2 Patient arrived on 5 mg/hr CARDIZEM in Left Antecubital via Peripheral IV. Pump/Drip Flow = 0 ml /hr using [Solution 8:56:38 Name]. 8:59:34 History and physical on the chart or being dictated. 8:59:35 Reference ECG taken Assessment: Initial Case, NW=103 BPM, Rhythm=afib, NRTL=444/103 mmhg, Chest Pain=0, Edema=None, Color=Normal, Skin = Warm, Dry 8:59:52 Right Pulses: Gary Ped=1, Femoral=3, Radial=3 Neurological: State=Alert, Ox3, VEE Respiration: Resp=15 B/min, SpO2=94 % 9:00:36 Allens test performed on the right radial and ulnar artery. POSITIVE. 9:00:46 LT=430 bpm, PJHS=101/92 mmhg, SpO2=93.0 %, Resp=25 B/min, Pain=0, Alecia=10, Dawn=2 9:00:51 Right Radial and groin(s) prepped with 2% chlorhexidine, and draped after a 3 min. waiting t supriya. 9:05:11 HR=90 bpm, ZCZE=014/97 mmhg, SpO2=96.0 %, Resp=16 B/min, Pain=0, Alecia=10, Dawn=2 9:09:13 MD paged 9:10:08 HR=92 bpm, YVEZ=388/88 mmhg, SpO2=95.0 %, Resp=15 B/min, Pain=0, Alecia=10, Dawn=2 9:12:09 Pressure channel 1 zeroed. 9:15:18 MD arrived. 9:15:22 Contrast Scanned 9:15:22 Immediate Presedation assesment performed by physician. 9:15:46 BN=616 bpm, QPEH=025/102 mmhg, SpO2=95 %, Resp=23 B/min, Pain=0, Alecia=10, Dawn=2 9:20:42 NV=670 bpm, OYHA=090/88 mmhg, SpO2=94.0 %, Resp=15 B/min, Pain=0, Alecia=10, Dawn=2 Time Out. Correct patient, correct procedure, correct physician, power injector loaded with cont rast with surgical team 9:22:33 present. Time Out Concurred by MD and individual staff in procedure. 9:22:55 Case Start 10 mg/hr CARDIZEM given in lab by Carlee Oh, MARI in Left Antecubital via Peripheral IV. Pum p/Drip Flow = 0 9:22:58 ml/hr using [Solution Name]. Ordered by Enrique Lopez. 9:23:18 1 mg VERSED given in lab by Carlee Oh, MARI in Left Antecubital via Peripheral IV. Order ed by Enrique Lopez. 9:24:45 1 mg VERSED given in lab by Carlee Oh, RN in Left Antecubital via Peripheral IV. Order ed by Enrique Lopez. 9:25:48 LT=393 bpm, PKFK=638/90 mmhg, SpO2=95.0 %, Resp=20 B/min, Pain=0, Alecia=10, Dawn=2 9:26:20 10 mg CARDIZEM given in lab by Carlee Oh, RN in Left Antecubital via Peripheral IV. Or dered by Enrique Lopez. 9:26:30 3 mL 1% XYLOCAINE given in lab by Enrique Lopez in Right Radial via Subcutaneous. 9:27:38 Access site was Right Radial Artery. A SHEATH, FR6 TRANSRADIAL SLENDER 10CM FR 6 was advanced into the Radial (right) using the [place] jaky 9:27:45 technique. 5 mL (Bolus) RADIAL COCKTAIL given in lab by Enrique Lopez in Right Radial via Radial. Using [So lution Name]. 9:27:52 Reason: Ntg 200mcg Verapamil 2.5mg Heparin 2500U. 9:28:15 1 mg VERSED given in lab by Carlee Oh, MARI in Left Antecubital via Peripheral IV. Order ed by Enrique Lopez. A CATHETER, FR5 OPTITORQUE RADIAL TIG 4.0 FR 5 was advanced over a wire. OMNIPAQUE, 350 MG, 100M L 100ML 9:29:22 was used for injections. 9:30:47 IV=763 bpm, EOEJ=032/89 mmhg, SpO2=95 %, Resp=16 B/min, Pain=0, Alecia=10, Dawn=2 Recorded Pressure: Ao, AA=944, Condition=Condition 1 9:31:10 (Aorta) Ao 116/75/93 9:35:07 HR=99 bpm, PTZF=458/82 mmhg, SpO2=95 %, Resp=16 B/min, Pain=0, Alecia=10, Dawn=2 Recorded Pressure: LV, HR=97, Condition=Condition 1 9:36:19 (Left Ventricle) LV 124/12/17 9:36:36 The LV was manually injected with 10 cc's and visualized. OMNIPAQUE, 350 MG, 100ML 100ML use d. Recorded Pressure: LV, Ao, HR=92, Condition=Condition 1 9:37:04 (Left Ventricle) LV 129/7/17, (Aorta) Ao 131/67/93 After removing the current catheter a JL 3.5 INFINITI CATHETER FR 5 was advanced over a WIRE, EX CHANGE 260CM 9:37:45 3MMJ 260CM. 9:40:19 The LCA was injected and visualized at various angles. OMNIPAQUE, 350 MG, 100ML 100ML used. 9:40:41 HR=91 bpm, BLXA=466/95 mmhg, SpO2=95.0 %, Resp=15 B/min, Pain=0, Alecia=10, Dawn=2 After removing the current catheter a JR 5.0 INFINITI CATHETER FR 5 was advanced over a WIRE, EX CHANGE 260CM 9:43:19 3MMJ 260CM. 9:44:45 1 mg VERSED given in lab by Carlee Oh, RN in Left Antecubital via Peripheral IV. Order ed by Enrique Lopez. 9:45:48 HR=87 bpm, NHPF=894/97 mmhg, SpO2=95.0 %, Resp=15 B/min, Pain=0, Alecia=10, Dawn=2 9:49:32 Catheter was removed 9:49:33 Case End 9:50:10 HR=80 bpm, ZRBC=380/89 mmhg, SpO2=97.0 %, Resp=17 B/min, Pain=0, Alecia=10, Dawn=2 Assessment: Final Case, HR=82 BPM, Rhythm=afib, BARA=720/89 mmhg, Chest Pain=0, Edema=None, [place] r=Normal, Skin = Warm, Dry 9:50:53 Right Pulses: Gary Ped=1, Femoral=3, Radial=3 Neurological: State=Alert, Ox3, VEE Respiration: Resp=15 B/min, SpO2=97 % 9:51:13 Catheter(s) removed without difficulty Radial Compression Device Used. 12 mLs of air placed in BAND, RADIAL COMPRESSION TR LARGE 29 29C M. Affected 9:51:16 hand 95 % O2 saturation. 9:51:26 Sterile dressing applied to site 9:51:27 No case complications noted. 9:51:31 Cine recording checked. 9:51:32 Bedside Report will be given. 9:51:34 Contrast Scanned 9:51:35 Verbal Stimulation=2 Physical Stimulation=2 Airway=2 Respiration=2 TOTAL=8. (0=absent, 1=thomas ited, 2=present) 9:51:47 A Left Heart Cath was performed. 9:55:13 HR=79 bpm, GUKC=879/90 mmhg, SpO2=96.0 %, Resp=18 B/min, Pain=0, Alecia=10, Dawn=2 9:58:14 Vitals capture stopped. 9:58:15 Patient moved to stretcher End Study - Contrast Media Used In Study Contrast Total Opened (mL) Total Used (mL) Total Wasted (mL) Omnipaque 80 80 0 End Study - Maximum Contrast Load Max Contrast Load (mL) 700.0 End Study - Radiation Exposure Fluoro Time (minutes) 6.8 End Study - Patient Disposition Complications Transferred To Interventional Outcome No Telemetry Bed No attempt made
[2018-01-11] MEDS ORDERED: SODIUM CHLOR 0.9% 1000 ML INJ 1,000 ML IV SCH (10:03)
[2018-01-11] MEDS ORDERED: MISC INFORMATION XX ONE (10:15)
[2018-01-11] MEDS: SODIUM CHLOR 0.9% 1000 ML INJ 1,000 ML IV SCH ×2 (10:15→16:50)
--- NOTE | 2018-01-11 10:19 | MA ---
cc: JABIER MCKEON DATE 01/11/2018 PROCEDURE PERFORMED 1. Left heart catheterization 2. Left ventriculography 3. Coronary angiography 4. Right radial arterial approach BRIEF HISTORY Ga Garcia is a 67-year-old morbidly obese patient admitted to the hospital with atrial fibrillation and rapid ventricular response and unstable angina. His troponins are elevated consistent with a non-ST segment elevation NE. DESCRIPTION OF PROCEDURE The patient was brought to the cardiac optical laboratory technician in fasting state. It took quite a bit of Versed to get him sedated adequately, a total of 4 mg was given during the case. The right groin and right wrist were prepped and draped in a sterile fashion. Using 1% lidocaine for local anesthesia and a Jelco needle, I accessed the right radial artery on the first attempt and placed a Terumo slender sheath. Next, I used a Collin catheter and was not able to engage either coronary artery, but was able to cross the aortic valve and do an LV gram and a pullback. I exchanged over a wire to a left 3.5 Tanner which permitted good engagement of the left coronary artery and multiple angiograms were obtained in multiple views. I then switched to a right five Tanner catheter and engaged the right coronary artery and obtained two views of the right coronary artery. He has complex multivessel disease and being diabetic at this point, I tried to get a cardiothoracic surgeon consult, but both surgeons are currently operating. I made a decision he would be better off with bypass, so the catheter was removed, the sheath is being removed with a Terumo band placed and a consult being placed cardiothoracic surgery. FINDINGS 1. Hemodynamics. Left ventricular pressure is 129/7 with an end-diastolic pressure 17, aortic pressure is 131/67 with a mean of 93. 2. Left ventriculography. Left ventriculography reveals a normal kostas left ventricle. Estimated ejection fraction is 60-70% and no obvious wall motion abnormalities seen. 3. Coronary angiography, the left main coronary artery has an eccentric 25% mid stenosis. It trifurcates into the LAD, ramus intermediate branch and circumflex artery. The left anterior descending artery gives off a first septal chemical process analyst branch and a first diagonal branch at the same time. The diagonal branch has about 50% stenosis and is graftable. It has diffuse disease. The left anterior descending artery just past the first septal and first diagonal has a complex long severe stenosis at least 95% severity with evidence for ulceration. The remainder of the LAD has irregularities only and is a good target vessel for bypass grafting. There is a large ramus intermediate branch which has only irregularities. The circumflex artery stays AV groove and has about 40% mid stenosis. The right coronary artery is large and dominant. This vessel has a tubular 90% ostial and proximal stenosis and beyond that segment, the vessel is at least 5.0 mm in diameter perhaps almost 6 mm in diameter. CONCLUSIONS 1. Slightly elevated left ventricular end-diastolic pressure. 2. Normal left ventricular systolic function. 3. Multivessel disease with a complex severe lesion in the LAD as well as a high-grade complex ostial right coronary stenosis. RECOMMENDATIONS Cardiothoracic surgery consult for consideration of bypass surgery to the LAD, diagonal branch and right coronary artery. MD RADHA Andino/ALPHONSE /9:58 AM /10:06 AM
--- NOTE | 2018-01-11 10:26 | ECHRPT ---
CONCLUSIONS Normal left ventricular size. Wall thickness is normal. The left ventricular systolic function is low normal with an estimated ejection fraction in the rang e of 50- 55%. Mitral annular calcification is present. The pulmonary valve is not well visualized. The inferior vena cava was not well visualized. BP: 124 / 74 HR: 84 Rhythm: MEASUREMENTS (Male / Female) Normal Values Technical Quality:Good 2D ECHO LV Diastolic Diameter PLAX 4.6 cm 4.2 - 5.9 / 3.9 - 5.3 cm LV Systolic Diameter PLAX 3.3 cm IVS Diastolic Thickness 1.2 cm 0.6 - 1.0 / 0.6 - 0.9 cm LVPW Diastolic Thickness 0.9 cm 0.6 - 1.0 / 0.6 - 0.9 cm LV Relative Wall Thickness 0.5 LA Systolic Diameter LX 4.7 cm 3.0 - 4.0 / 2.7 - 3.8 cm DOPPLER Mitral E Point Velocity 106.0 cm/s FINDINGS LEFT VENTRICLE Normal left ventricular size. Wall thickness is normal. The left ventricular systolic function is low normal with an estimated ejection fraction in the rang e of 50- 55%. RIGHT VENTRICLE Normal right ventricular size and systolic function. LEFT ATRIUM The left atrial size is normal. RIGHT ATRIUM The right atrial size is normal. ATRIAL SEPTUM Normal atrial septal thickness without atrial level shunting by limited color doppler interrogation. AORTA The aortic root and proximal ascending aorta are normal in size on limited imaging. MITRAL VALVE Mitral annular calcification is present. AORTIC VALVE Trileaflet aortic valve. No aortic valve stenosis or regurgitation. TRICUSPID VALVE Structurally normal tricuspid valve. No tricuspid valve stenosis or regurgitation. PULMONARY VALVE The pulmonary valve is not well visualized. VESSELS The inferior vena cava was not well visualized. PERICARDIUM No pericardial effusion. Enrique Lopez MD (Electronically Signed) Final Date:11 January 2018 10:26
[2018-01-11] MEDS ORDERED: HEPARIN-D5W 25,000 U/250 ML 250 ML IV PRN (12:00)
--- NOTE | 2018-01-11 12:39 | HHI.PR ---
Subjective Remarks f/u; NSTEMI/ a-fib had cardiac cath earlier today. denies chest pain or sob. awaiting CT surgery evaluation. Objective Vitals Vital Signs Date Time Temp Pulse Resp B/P (MAP) Pulse Ox O2 Delivery O2 Flow Rate FiO2 01/11/18 08:38 01/11/18 08:36 82 18 103/55 (71) 97 Room Air 01/11/18 06:00 84 19 124/74 (91) 97 Room Air 01/11/18 05:00 88 21 119/75 (90) 96 Room Air 01/11/18 04:00 84 12 118/56 (76) 95 Room Air 01/11/18 03:00 86 12 116/71 (86) 97 Room Air 01/11/18 02:00 94 16 138/74 (95) 95 Room Air 01/11/18 01:00 88 21 127/69 (88) 95 Room Air 01/10/18 23:55 17 96 01/10/18 23:53 89 19 103/65 (78) 96 Room Air 01/10/18 22:19 108 18 147/94 (111) 97 Room Air 01/10/18 19:15 89 18 96 Room Air 01/10/18 19:14 89 18 122/64 (83) 96 Room Air 01/10/18 18:00 88 114/65 (81) 01/10/18 17:00 80 116/58 (77) 01/10/18 16:30 146 129/62 (84) 01/10/18 16:13 162 109/55 01/10/18 15:15 86 15 133/61 (85) 94 Room Air 01/10/18 14:41 86 15 125/61 (82) 95 Room Air 01/10/18 13:45 97.9 167 20 175/78 (110) 95 Room Air I/O 01/10/18 01/10/18 01/10/18 01/11/18 01/11/18 01/11/18 07:00 15:00 23:00 07:00 15:00 23:00 Intake Total 500 ml 500 ml Balance 500 ml 500 ml Intake IV Total 500 ml 500 ml Result Diagram: 01/11/18 0418 01/11/18 [address] Angiography 01/10/18 141 Signed Impressions: Service Date/Time: Wednesday, January 10, 2018 15:50 - CONCLUSION: 1. No acute intrathoracic process. In particular, no pulmonary emboli. 2. Significant coronary artery and aortic atherosclerotic calcifications. Jason Vega Jr., MD Chest X-Ray 01/10/18 1350 Signed Impressions: Service Date/Time: Wednesday, January 10, 2018 14:24 - CONCLUSION: No acute disease. Jason Vega Jr., MD Objective Remarks GENERAL: This is a well-nourished, well-developed patient, in no apparent distress. CARDIOVASCULAR: Regular rate and regular rhythm without murmurs, gallops, or rubs. RESPIRATORY: Clear to auscultation. Breath sounds equal bilaterally. No wheezes , rales, or rhonchi. GASTROINTESTINAL: Abdomen soft, non-tender, nondistended. Normal, active bowel sounds MUSCULOSKELETAL: Extremities without clubbing, cyanosis, or edema. NEURO: Alert & Oriented x4 to person, place, time, situation. Moves all ext x4 Procedures cardiac cath Medications and IVs Inpatient Medications Aspirin (Aspirin Chew) 81 mg DAILY PO ; Start 01/12/18 at 09:00; Status UNV Aspirin (Ecotrin Ec) 81 mg DAILY PO ; Start 01/11/18 at 09:00 Dextrose (D50w (Vial) Inj) 50 ml UNSCH PRN IV PUSH HYPOGLYCEMIA-SEE COMMENTS; Start 01/10/18 at 19:45 Diazepam (Valium) 5 mg ROLLER PRINTER PO ; Start 01/11/18 at 08:00; Stop 01/15/18 at 07:59 Diltiazem HCl (Cardizem Cd) 120 mg DAILY PO ; Start 01/11/18 at 09:00 Diltiazem HCl (Cardizem Inj) 15 mg ONCE ONCE IV Last administered on at 16:29; Start 01/10/18 at 16:30; Stop 01/10/18 at 16:31; Status DC Diltiazem HCl 125 mg/Sodium Chloride 125 ml @ 5 mls/hr TITRATE PRN IV tachycardia Last administered on 01/10/18at 16:13; Start 01/10/18 at 15:45 Diphenhydramine HCl (Benadryl) 50 mg ROLLER PRINTER PO ; Start 01/11/18 at 08:00; Stop 01/15/18 at 07:59 Enoxaparin Sodium (Lovenox Inj) 40 mg Q24H SQ ; Start 01/10/18 at 21:00; Stop at 21:25; Status DC Fluticasone Propionate (Flonase Tulio Spr) 2 spray BID EACH NARE Last administered on 01/10/18at 21:54; Start 01/10/18 at 21:00 Glucagon (Glucagon Inj) 1 mg UNSCH PRN OTHER HYPOGLYCEMIA-SEE COMMENTS; Start 01/10/18 at 19:45 Heparin Sodium (Porcine) (Heparin Inj) 2,500 units UNSCH PRN IV PUSH APTT 25 TO 39; Start 01/11/18 at 16:15; Status UNV Heparin Sodium/ Dextrose 250 ml @ 0 mls/hr TITRATE PRN IV Coagulation Management; Start 01/11/18 at 12:00; Status UNV Hydrochlorothiazide (Microzide) 12.5 mg DAILY PO ; Start 01/11/18 at 09:00 Insulin Aspart (NovoLOG SUPPLEMENTAL SCALE) 1 ACHS SLIDING SCALE SQ Last administered on 01/10/18at 21:55; Start 01/10/18 at 21:00 Levothyroxine Sodium (Synthroid) 125 mcg DAILY@0600 PO Last administered on at 06:15; Start 01/11/18 at 06:00 Lisinopril (Prinivil) 20 mg DAILY PO ; Start 01/11/18 at 09:00 Loratadine (Claritin) 10 mg DAILY PO ; Start 01/11/18 at 09:00 Magnesium Hydroxide (Milk Of Magnesia Liq) 30 ml Q12H PRN PO Mild constipation ; Start 01/10/18 at 18:15 Metformin HCl (Glucophage) 1,000 mg BIDPC PO ; Start 01/11/18 at 09:00; Status Future Hold Miscellaneous Information 1 ONCE ONCE XX ; Start 01/11/18 at 10:15; Stop at 10:16; Status UNV Morphine Sulfate (Morphine Inj) 4 mg Q3H PRN IV PUSH Pain 6-10;if unable to take PO; Start 01/10/18 at 18:15 Naloxone HCl (Narcan Inj) 0.4 mg UNSCH PRN IV PUSH SEE LABEL COMMENTS; Start at 18:15 Nitroglycerin (Nitroglycerin 2% Oint) 0.5 inch Q6HR TOPICAL ; Start 01/11/18 at 08:00 Ondansetron HCl (Zofran Inj) 4 mg Q6H PRN IVP NAUSEA OR VOMITING; Start at 18:15 Sodium Chloride 1,000 ml @ 100 mls/hr Q10H IV ; Start 01/11/18 at 10:03; Stop 01/11/18 at 20:02; Status UNV Sodium Chloride (NS Flush) 2 ml BID IV FLUSH ; Start 01/10/18 at 21:00 A/P Problem List: (1) Atrial flutter with rapid ventricular response ICD Code: I48.92 - Unspecified atrial flutter Status: Acute (2) Elevated troponin ICD Code: R74.8 - Abnormal levels of other serum enzymes Status: Acute (3) Hyperglycemia ICD Code: R73.9 - Hyperglycemia, unspecified Status: Acute Assessment and Plan New onset atrial flutter Chest pain NSTEMI s/p cardiac cath with multivessel disease continue aspirin and heparin drip continue Cardizem CT surgery consulted for CABG Hyperglycemia Diabetes mellitus type 2 hold metformin Follow blood sugars Insulin sliding scale Diabetic diet History of prostate cancer Follows in outpatient Hypothyroidism No change to present treatment at this point Obtain thyroid panel DVT prophylaxis Heparin Discharge Planning CT surgery consulted. Veronica Cheng MD Jan 11, 2018 12:39
[2018-01-11] MEDS: ASPIRIN EC 81 MG TABEC PO SCH (13:00)
[2018-01-11] MEDS: LORATADINE 10 MG TAB PO SCH (13:00)
[2018-01-11] MEDS ORDERED: CHLORHEXIDINE GLUCONATE 4% SOLN 120 ML BTL TOPICAL SCH (13:30)
[2018-01-11] MEDS ORDERED: DEXTROSE 50% IN WATER 50 ML VIAL(D50) IV PUSH PRN (13:30)
[2018-01-11] MEDS ORDERED: CEFAZOLIN INJ 3,000 MG in SODIUM CHLORIDE 0.9% INJ 100 ML IV SCH (13:30)
[2018-01-11] MEDS ORDERED: SODIUM CHLORIDE 0.9% FLUSH 10 ML FLUSH IV FLUSH PRN (13:30)
[2018-01-11] MEDS ORDERED: INSULIN REGULAR (IV INFUSION) 100 UNITS in SODIUM CHLORIDE 0.9% INJ 99 ML IV PRN (13:30)
--- NOTE | 2018-01-11 13:40 | PD.CAR.PN ---
CVT Progress Note Subjective/Hospital Course: sts discussed with pt full consult dictated RISK SCORES About the STS Risk Calculator Procedure: CAB Only Risk of Mortality: 1.328% Morbidity or Mortality: 15.843% Long Length of Stay: 6.667% Short Length of Stay: 40.132% Permanent Stroke: 0.885% Prolonged Ventilation: 11.077% DSW Infection: 1.074% Renal Failure: 4.176% Reoperation: 5.069% Objective: Vital Signs Date Time Temp Pulse Resp B/P (MAP) Pulse Ox O2 Delivery O2 Flow Rate FiO2 01/11/18 08:38 01/11/18 08:36 82 18 103/55 (71) 97 Room Air 01/11/18 06:00 84 19 124/74 (91) 97 Room Air 01/11/18 05:00 88 21 119/75 (90) 96 Room Air 01/11/18 04:00 84 12 118/56 (76) 95 Room Air 01/11/18 03:00 86 12 116/71 (86) 97 Room Air 01/11/18 02:00 94 16 138/74 (95) 95 Room Air 01/11/18 01:00 88 21 127/69 (88) 95 Room Air 01/10/18 23:55 17 96 01/10/18 23:53 89 19 103/65 (78) 96 Room Air 01/10/18 22:19 108 18 147/94 (111) 97 Room Air 01/10/18 19:15 89 18 96 Room Air 01/10/18 19:14 89 18 122/64 (83) 96 Room Air 01/10/18 18:00 88 114/65 (81) 01/10/18 17:00 80 116/58 (77) 01/10/18 16:30 146 129/62 (84) 01/10/18 16:13 162 109/55 01/10/18 15:15 86 15 133/61 (85) 94 Room Air 01/10/18 14:41 86 15 125/61 (82) 95 Room Air 01/10/18 13:45 97.9 167 20 175/78 (110) 95 Room Air Labs: Laboratory Tests Test 01/11/18 02:37 01/11/18 04:18 01/11/18 07:08 Total Creatine Kinase 370 U/L (39-308) 266 U/L (39-308) Creatine Kinase MB 39.8 NG/ML (0.5-3.6) Creatine Kinase MB % 10.8 % (0.0-4.0) Troponin I 12.90 NG/ML (0.02-0.05) 9.30 NG/ML (0.02-0.05) White Blood Count 13.4 TH/MM3 (4.0-11.0) Red Blood Count 5.03 MIL/MM3 (4.50-5.90) Hemoglobin 14.6 GM/DL (13.0-17.0) Hematocrit 43.1 % (39.0-51.0) Mean Corpuscular Volume 85.7 FL (80.0-100.0) Mean Corpuscular Hemoglobin 29.0 PG (27.0-34.0) Mean Corpuscular Hemoglobin Concent 33.8 % (32.0-36.0) Red Cell Distribution Width 14.1 % (11.6-17.2) Platelet Count 319 TH/MM3 (150-450) Mean Platelet Volume 8.8 FL (7.0-11.0) Neutrophils (%) (Auto) 74.0 % (16.0-70.0) Lymphocytes (%) (Auto) 16.9 % (9.0-44.0) Monocytes (%) (Auto) 7.8 % (0.0-8.0) Eosinophils (%) (Auto) 1.0 % (0.0-4.0) Basophils (%) (Auto) 0.3 % (0.0-2.0) Neutrophils # (Auto) 10.0 TH/MM3 (1.8-7.7) Lymphocytes # (Auto) 2.3 TH/MM3 (1.0-4.8) Monocytes # (Auto) 1.0 TH/MM3 (0-0.9) Eosinophils # (Auto) 0.1 TH/MM3 (0-0.4) Basophils # (Auto) 0.0 TH/MM3 (0-0.2) CBC Comment DIFF FINAL Differential Comment Activated Partial Thromboplast Time 26.0 SEC (24.3-30.1) Blood Urea Nitrogen 24 MG/DL (7-18) Creatinine 1.04 MG/DL (0.60-1.30) Random Glucose 243 MG/DL (74-106) Total Protein 6.5 GM/DL (6.4-8.2) Albumin 3.2 GM/DL (3.4-5.0) Calcium Level 8.5 MG/DL (8.5-10.1) Alkaline Phosphatase 127 U/L (45-117) Aspartate Amino Transf (AST/SGOT) 48 U/L (15-37) Alanine Aminotransferase (ALT/SGPT) 16 U/L (12-78) Total Bilirubin 0.4 MG/DL (0.2-1.0) Sodium Level 137 MEQ/L (136-145) Potassium Level 4.0 MEQ/L (3.5-5.1) Chloride Level 103 MEQ/L (98-107) Carbon Dioxide Level 27.4 MEQ/L (21.0-32.0) Anion Gap 7 MEQ/L (5-15) Estimat Glomerular Filtration Rate 71 ML/MIN (>89) Thyroxine (T4) 10.8 MCG/DL (4.5-12.1) Free Triiodothyronine (T3) pg/dL 2.19 PG/ML (2.18-3.98) Thyroid Stimulating Hormone 3rd Gen 1.170 uIU/ML (0.358-3.740) Result Diagram: 01/11/1841701/11/188 Vandana Waddell Jan 11, 2018 13:40
[2018-01-11] MEDS: HEPARIN-D5W 25,000 U/250 ML 250 ML IV PRN ×2 (14:14→23:28)
[2018-01-11] MEDS ORDERED: PAPAVERINE INJ 60 MG, NITROGLYCERIN INJ 100 MCG, DILTIAZEM INJ 100 MG in SODIUM CHLORID... IRRIGATION SCH (14:30)
[2018-01-11] MEDS ORDERED: CEFAZOLIN INJ 500 MG in SODIUM CHLORIDE 0.9% IRR BTL 500 ML IRRIGATION SCH (14:30)
[2018-01-11 15:38] LABS: CHOLESTEROL/ HDL RATIO 3.38 RATIO; HDL CHOLESTEROL 45.8 MG/DL (40.0-60.0)
[2018-01-11] MEDS ORDERED: HEPARIN - 10,000 UNITS/ML IV ADDITIVE IV PUSH PRN (16:15)
--- NOTE | 2018-01-11 16:19 | MB ---
cc: RAMILA SOW MD DATE OF CONSULTATION: 01/11/2018 1950 HISTORY OF PRESENT ILLNESS A 67-year-old male that is visiting the area for the races from [place], [place], was driving down on Tuesday, stopped at a gas station, was pumping gas in [place] when he noticed some palpitations, became short of breath, had some diaphoresis. Lasted for approximately half an hour and later on developed a little bit of discomfort to his midsternum. Once he arrived in [facility] and went to his motel, he woke up Tuesday morning, showered and just did not feel very well, had some discomfort, had a little fluttering in his chest and it did not feel right. He came into the emergency room and was found to be in atrial fibrillation with RVR. He received some IV Cardizem which brought his heart rate back down to a normal rate. His chest discomfort was better, however, initial troponin was 13 at its highest. His BNP was 410. He was ruled in for xmm-RS-nathord DE. He was evaluated by Dr. Enrique Lopez and underwent cardiac cath this morning which showed a 25% left main disease, the diagonal branch had a 50% stenosis, the LAD descending artery just past the first septal and first diagonal had a complex long severe stenosis at least 95% with some evidence of ulceration. There was a large ramus branch which had only some irregularities, the circ had about 40% mid stenosis, the RCA had a 90% ostial and proximal stenosis. We were consulted to evaluate for coronary artery bypass grafting. The patient also underwent 2-D echocardiogram which showed ejection fraction of 50-55%, no valvular heart disease. PAST MEDICAL HISTORY 1. Newly diagnosed diabetes mellitus. 2. Hypertension. 3. Lipid status unknown, states he just had some lab work but has not been on a statin. 4. Hypothyroidism and he takes levothyroxine. 5. Morbidly obese with a BMI of 48. PAST SURGICAL HISTORY 1. Cryo procedure for prostate cancer at [facility]. 2. Right shoulder surgery. 3. Hiatal hernia surgery. 4. Tonsillectomy. ALLERGIES No known allergies. MEDICATIONS Home medications include: 1. Adrienne. 2. Lisinopril/Hydrochlorothiazide. 3. Flonase. 4. Metformin. 5. Levothyroxine. FAMILY HISTORY Both parents in their 90s from old age. SOCIAL HISTORY The patient is single, works in customer service sales for [employer], visiting from [place] for the races. No tobacco. No alcohol. No illicit drugs. Has family and friends in [facility]. REVIEW OF SYSTEMS GENERAL: No night sweats, fever, heat and cold intolerance. SKIN: No psoriasis, itching or hives. HEENT: No blurred vision, hearing loss. RESPIRATORY: Recent shortness of breath. CARDIOVASCULAR: As above in HPI. GASTROINTESTINAL: No diarrhea, vomiting. GENITOURINARY: No burning, frequency, urgency. SPEAKER MOUNTER: No history of TIA, CVA, seizure disorder. ENDOCRINOLOGY: Positive for diabetes and hypothyroidism. PHYSICAL EXAMINATION GENERAL: A rather obese male, alert and oriented, stated age. VITAL SIGNS: Blood pressure 124/70, heart rate of 84, afebrile, 97% O2 on room air. GENERAL: Patient is alert and oriented, in no acute distress. HEENT: Head is normocephalic, atraumatic. Oral mucosa pink, moist. He has had some dental procedures done. No loose teeth or dental caries. NECK: Supple. No JVD. HEART: S1-S2, irregular rate and rhythm. No audible rubs, murmurs, gallops. LUNGS: Clear to auscultation. No wheezes, rales or rhonchi. ABDOMEN: Abdomen is obese, soft, he has a large pannus. GENITOURINARY: Deferred. EXTREMITIES: Reveal trace edema. He has got some chronic venostasis. Good distal pulses. LABORATORY DATA Lab work shows hemoglobin 14, hematocrit of 43, white cell count 13, platelet count 319, sodium 137, potassium 4.0, BUN 24, creatinine 1.04, glucose 243, hemoglobin A1c pending. Troponin was elevated at 13, AST 48, ALT 16, TSH of 1.17. CTA showed no pulmonary emboli. He had some significant aortic atherosclerotic calcification. Chest x-ray was unremarkable. Initial EKG showed atrial fibrillation with RVR. He still remains in atrial fibrillation with a controlled rate. Lipid panel is pending. IMPRESSION This is a 67-year-old morbidly obese male with a BMI of 48, that was admitted with a [id number] DE, underwent cardiac cath which reveals multivessel coronary artery disease. The cardiac films will be evaluated by Dr. Ramila Sow and evaluated for possible coronary artery bypass grafting. Procedures, alternatives and risks will be discussed with the patient, STS data discussed with the patient and entered in electronic record. The STS risk of mortality is 1.3. Further planning as per Dr. Ramila Sow. Dictated by: ZHANG Hickey Ramila HAYES/CHARUL /1:43 PM /4:05 PM
[2018-01-11] MEDS ORDERED: IOHEXOL 350 MG/ML 100 ML BTL (for Cath Lab) OTHER ONE (17:00)
[2018-01-11 17:20] LABS: HEMOGLOBIN A1C 8.8 % (4.3-6.0)
--- NOTE | 2018-01-11 19:27 | RADRPT ---
EXAM DATE/TIME: 01/11/2018 16:18 [facility] COMPARISON: No previous studies available for comparison. INDICATIONS : Pre-op cardiac surgery. MEDICAL HISTORY : Hypertension. Carcinoma, prostate. Thyroid disease. Palpitations. Diabetes. SURGICAL HISTORY : Tonsillectomy. Right shoulder surgery. Cryotherapy. Hernia repair. Cardiac cath. ENCOUNTER: Initial ACUITY: 1 day PAIN SCORE: 0/10 LOCATION: Bilateral neck PEAK SYSTOLIC VELOCITIES (cm/sec): ICA/CCA RATIO: Right: 0.7 Left: 0.7 ICA: Right: 93 Left: 114 CCA: Right: 130 Left: 134 ECA: Right: 197 Left: 87 VERTEBRAL: Right: 43 antegrade Left: 35 antegrade Elevated flow velocities and ICA/CCA ratios have been found to correlate with increased degrees of vessel stenosis, calculated as percentage of diameter relative to a normal segment of distal ICA/CCA FINDINGS: Antegrade flow is seen in both vertebral arteries. There is mild atherosclerotic plaquing at the orig in of both ICAs without any significant stenosis. CONCLUSION: No evidence for hemodynamically significant stenosis. Tavon Hernadez MD on January 11, 2018 at 19:26 Board Certified Radiologist. This report was verified electronically.
--- NOTE | 2018-01-11 19:28 | RADRPT ---
EXAM DATE/TIME: 01/11/2018 16:54 [facility] COMPARISON: No previous studies available for comparison. INDICATIONS : Preop cardiac surgery. MEDICAL HISTORY : Hypertension. Carcinoma, prostate. Thyroid disease. Palpitations. Diabetes. SURGICAL HISTORY : Tonsillectomy. Right shoulder surgery. Cryotherapy. Hernia repair. Cardiac cath. ENCOUNTER: Initial ACUITY: 1 day PAIN SCORE: 0/10 LOCATION: Bilateral leg. TECHNIQUE: Venous ultrasound of the left and right leg was performed from the inguinal ligament to the proximal calf. Real-time, color Doppler and spectral tracing, compression and augmentation techniques were us ed. FINDINGS: RIGHT LEG: There is normal compressibility of the deep venous system from the inguinal region to the proximal ca lf. No echogenic clot is seen in the lumen of the common femoral, femoral, popliteal, and posterior tibial veins. There is a normal response of the venous system to proximal and distal augmentation an d respiration. Approximate 6.5 cm Salter's cyst is present. LEFT LEG: There is normal compressibility of the deep venous system from the inguinal region to the proximal ca lf. No echogenic clot is seen in the lumen of the common femoral, femoral, popliteal, and posterior tibial veins. There is a normal response of the venous system to proximal and distal augmentation an d respiration. Approximate 5.6 cm Salter's cyst is present. CONCLUSION: Bilateral Salter's cysts and no evidence for DVT. Tavon Hernadez MD on January 11, 2018 at 19:26 Board Certified Radiologist. This report was verified electronically.
--- NOTE | 2018-01-11 19:30 | RADRPT ---
EXAM DATE/TIME: 01/11/2018 17:15 [facility] COMPARISON: No previous studies available for comparison. INDICATIONS : Preop cardiac surgery. MEDICAL HISTORY : Hypertension. Carcinoma, prostate. Thyroid disease. Palpitations. Diabetes. SURGICAL HISTORY : Tonsillectomy. Right shoulder surgery. Cryotherapy. Hernia repair. Cardiac cath. ENCOUNTER: Subsequent ACUITY: 1 day PAIN SCORE: 0/10 LOCATION: Bilateral leg. GREATER SAPHENOUS VEIN THIGH: PROXIMAL: Right 5 mm Left 5 mm MID: Right 3 mm Left 7 mm DISTAL: Right Non-visualized Left 5 mm CALF: PROXIMAL: Right 2 mm Left 4 mm MID: Right 1 mm Left 4 mm DISTAL: Right 2 mm Left 3 mm FINDINGS: The venous system of the lower extremities are patent by color Doppler imaging. Measurements of the leg veins (in mm) are listed above. There appears to be a Salter's cyst in the left popliteal fossa. CONCLUSION: Measurements as above with a varicose vein on the right side coming off the greater saphenous vein. Tavon Hernadez MD on January 11, 2018 at 19:27 Board Certified Radiologist. This report was verified electronically.
--- NOTE | 2018-01-11 21:18 | EKG ---
Date Performed: 01/11/2018 Time Performed: 02:41:24 PTAGE: 67 years EKG: ATRIAL FIBRILLATION ABNORMAL RHYTHM ECG PREVIOUS TRACING : 01/10/2018 20.30 Since the prior tracing, there has been no significant hubbard DOCTOR: Carmine Sanders Interpretating Date/Time 01/11/2018 21:17:26
--- NOTE | 2018-01-11 21:36 | EKG ---
Date Performed: 01/10/2018 Time Performed: 20:30:17 PTAGE: 67 years EKG: Sinus rhythm ABNORMAL RHYTHM ECG PREVIOUS TRACING : 01/10/2018 14.55 Since the prior tracing, there has been no significant hubbard DOCTOR: Carmine Sanders Interpretating Date/Time 01/11/2018 21:35:58
--- NOTE | 2018-01-11 21:58 | EKG ---
Date Performed: 01/10/2018 Time Performed: 14:55:03 PTAGE: 67 years EKG: ATRIAL FLUTTER/TACHYCARDIA BORDERLINE LEFT AXIS DEVIATION RIGHT BUNDLE BRANCH BLOCK ABNORMA L ECG PREVIOUS TRACING : 01/10/2018 13.56 Compared to prior tracing, RAPID VENTRICULAR RESPONSE IS N O LONGER PRESENT DOCTOR: Carmine Sanders Interpretating Date/Time 01/11/2018 21:57:58
--- NOTE | 2018-01-11 22:07 | EKG ---
Date Performed: 01/10/2018 Time Performed: 13:56:13 PTAGE: 67 years EKG: ATRIAL FLUTTER/TACHYCARDIA WITH RAPID VENTRICULAR RESPONSE WITH ABERRANT CONDUCTION OR VENT RICULAR PREMATURE COMPLEXES RIGHT BUNDLE BRANCH BLOCK ABNORMAL ECG NO PREVIOUS TRACING DOCTOR: Carmine Sanders Interpretating Date/Time 01/11/2018 22:06:43
[2018-01-12] VITALS (24 sets, daily range): BP systolic 108–155; BP diastolic 56–78; PULSE 52–91; RESP 16–20; TEMP 98–98.6; O2SAT 94–98
[2018-01-12] MEDS: SODIUM CHLOR 0.9% 1000 ML INJ 1,000 ML IV SCH ×3 (02:50→23:47)
[2018-01-12 05:03] LABS: AUTOMATED NEUTROPHIL # 8.4 TH/MM3 (1.8-7.7); BASOPHIL % 0.3 % (0.0-2.0); EOSINOPHIL # 0.3 TH/MM3 (0-0.4); EOSINOPHIL % 2.4 % (0.0-4.0); HEMATOCRIT 38.2 % (39.0-51.0); LYMPH % 18.9 % (9.0-44.0); LYMPHOCYTE # 2.2 TH/MM3 (1.0-4.8); MEAN CELL VOLUME 84.8 FL (80.0-100.0); MEAN CORPUSCULAR HEMOGLOBIN 28.8 PG (27.0-34.0); MEAN PLATELET VOLUME 8.3 FL (7.0-11.0); MONO % 6.5 % (0.0-8.0); MONOCYTE # 0.8 TH/MM3 (0-0.9); NEUT % 71.9 % (16.0-70.0); PLATELET COUNT 260 TH/MM3 (150-450); RED BLOOD COUNT 4.51 MIL/MM3 (4.50-5.90); RED CELL DISTRIBUTION WIDTH 13.9 % (11.6-17.2); WHITE BLOOD COUNT 11.7 TH/MM3 (4.0-11.0)
[2018-01-12] MEDS: LEVOTHYROXINE SODIUM 125 MCG TAB PO SCH (05:17)
[2018-01-12] MEDS: NITROGLYCERIN 2% OINT 1 GM PACKET TOPICAL SCH ×3 (05:17→18:35)
[2018-01-12 05:35] LABS: BICARBONATE 25.2 MEQ/L (21.0-32.0); CALCIUM 7.7 MG/DL (8.5-10.1); CREATININE 0.84 MG/DL (0.60-1.30)
[2018-01-12] MEDS: HEPARIN SODIUM - IV 10,000 UNITS/10 ML VIAL IV PUSH PRN ×2 (06:39→16:59)
--- NOTE | 2018-01-12 07:35 | HHI.PR ---
Subjective Remarks in no acute distress. denies chest pain or sob. no complaints over night. Objective Vitals Vital Signs Date Time Temp Pulse Resp B/P (MAP) Pulse Ox O2 Delivery O2 Flow Rate FiO2 01/12/18 06:03 63 01/12/18 05:18 66 01/12/18 04:29 68 01/12/18 03:30 61 01/12/18 03:20 98.0 61 18 108/68 (81) 98 01/12/18 02:33 56 01/12/18 01:38 64 01/12/18 00:00 62 01/11/18 23:20 98.3 64 19 105/65 (78) 95 01/11/18 23:00 57 01/11/18 22:00 68 01/11/18 21:00 68 01/11/18 20:30 68 01/11/18 19:50 75 01/11/18 19:30 98.2 61 20 135/63 (87) 97 01/11/18 18:01 67 01/11/18 17:09 63 01/11/18 16:00 65 01/11/18 15:46 98.0 64 18 118/59 (78) 95 01/11/18 15:46 63 01/11/18 15:00 64 118/59 01/11/18 10:09 98 Room Air 01/11/18 08:38 01/11/18 08:36 82 18 103/55 (71) 97 Room Air I/O 01/11/18 01/11/18 01/11/18 01/12/18 01/12/18 01/12/18 07:00 15:00 23:00 07:00 15:00 23:00 Intake Total 240 ml 480 ml Output Total 1175 ml Balance 240 ml -695 ml Intake Oral 240 ml 480 ml Output Urine Total 1175 ml # Bowel Movements 0 0 Result Diagram: 01/12/186 01/12/18 0446 Imaging Last Impressions Lower Extremity Ultrasound 01/11/18 0000 Signed Impressions: Service Date/Time: Thursday, January 11, 2018 17:15 - CONCLUSION: Measurements as above with a varicose vein on the right side coming off the greater saphenous vein. Tavon Hernadez MD Carotid Artery Ultrasound 01/11/18 0000 Signed Impressions: Service Date/Time: Thursday, January 11, 2018 16:18 - CONCLUSION: No evidence for hemodynamically significant stenosis. Tavon Hernadez MD CT Angiography 01/10/18 1417 Signed Impressions: Service Date/Time: Wednesday, January 10, 2018 15:50 - CONCLUSION: 1. No acute intrathoracic process. In particular, no pulmonary emboli. 2. Significant coronary artery and aortic atherosclerotic calcifications. Jason Vega Jr., MD Chest X-Ray 01/10/18 1350 Signed Impressions: Service Date/Time: Wednesday, January 10, 2018 14:24 - CONCLUSION: No acute disease. Jason Vega Jr., MD Objective Remarks GENERAL: This is a well-nourished, well-developed patient, in no apparent distress. CARDIOVASCULAR: Regular rate and regular rhythm without murmurs, gallops, or rubs. RESPIRATORY: Clear to auscultation. Breath sounds equal bilaterally. No wheezes , rales, or rhonchi. GASTROINTESTINAL: Abdomen soft, non-tender, nondistended. Normal, active bowel sounds MUSCULOSKELETAL: Extremities without clubbing, cyanosis, or edema. NEURO: Alert & Oriented x4 to person, place, time, situation. Moves all ext x4 Procedures cardiac cath Medications and IVs Inpatient Medications Aspirin (Aspirin Chew) 81 mg DAILY PO ; Start 01/12/18 at 09:00 Aspirin (Ecotrin Ec) 81 mg DAILY PO Last administered on 01/11/18at 13:00; Start 01/11/18 at 09:00 Cefazolin Sodium 500 mg/Sodium Chloride 505 ml @ 0 mls/hr AIRWAY CONTROLLER IRRIGATION ; Start 01/11/18 at 14:30; Stop 01/18/18 at 14:29 Cefazolin Sodium 3000 mg/Sodium Chloride 130 ml @ 200 mls/hr AIRWAY CONTROLLER IV ; Start 01/11/18 at 13:30; Stop 01/18/18 at 13:29 Chlorhexidine Gluconate (Hibiclens 4% Top Soln) 1 applic AIRWAY CONTROLLER TOPICAL ; Start 01/11/18 at 13:30; Stop 01/18/18 at 13:29 Dextrose (D50w (Vial) Inj) 50 ml UNSCH PRN IV PUSH HYPOGLYCEMIA-SEE COMMENTS; Start 01/11/18 at 13:30 Diazepam (Valium) 5 mg AIRWAY CONTROLLER PO ; Start 01/11/18 at 08:00; Stop 01/15/18 at 07:59 Diltiazem HCl (Cardizem Cd) 120 mg DAILY PO Last administered on 01/11/18at 11: 00; Start 01/11/18 at 09:00 Diltiazem HCl (Cardizem Inj) 15 mg ONCE ONCE IV Last administered on at 16:29; Start 01/10/18 at 16:30; Stop 01/10/18 at 16:31; Status DC Diltiazem HCl 125 mg/Sodium Chloride 125 ml @ 5 mls/hr TITRATE PRN IV tachycardia Last administered on 01/10/18at 16:13; Start 01/10/18 at 15:45 Diphenhydramine HCl (Benadryl) 50 mg AIRWAY CONTROLLER PO ; Start 01/11/18 at 08:00; Stop 01/15/18 at 07:59 Enoxaparin Sodium (Lovenox Inj) 40 mg Q24H SQ ; Start 01/10/18 at 21:00; Stop at 21:25; Status DC Fluticasone Propionate (Flonase Tulio Spr) 2 spray BID EACH NARE Last administered on 01/11/18at 21:04; Start 01/10/18 at 21:00 Glucagon (Glucagon Inj) 1 mg UNSCH PRN OTHER HYPOGLYCEMIA-SEE COMMENTS; Start 01/10/18 at 19:45 Heparin Sodium (Porcine) (Heparin Inj) 2,500 units UNSCH PRN IV PUSH APTT 25 TO 39 Last administered on 01/12/18at 06:39; Start 01/11/18 at 16:15 Heparin Sodium/ Dextrose 250 ml @ 10 mls/hr TITRATE PRN IV Coagulation Management Last administered on 01/11/18at 23:28; Start 01/11/18 at 12:00 Hydrochlorothiazide (Microzide) 12.5 mg DAILY PO Last administered on at 13:00; Start 01/11/18 at 09:00; Status Future Hold Insulin Aspart (NovoLOG SUPPLEMENTAL SCALE) 1 ACHS SLIDING SCALE SQ Last administered on 01/11/18at 21:00; Start 01/10/18 at 21:00 Insulin Human Regular 100 units/ Sodium Chloride 100 ml @ 3 mls/hr TITRATE PRN IV for blood glucose control; Start 01/11/18 at 13:30; Stop 01/18/18 at 13:29 Levothyroxine Sodium (Synthroid) 125 mcg DAILY@0600 PO Last administered on at 05:17; Start 01/11/18 at 06:00 Lisinopril (Prinivil) 20 mg DAILY PO Last administered on 01/11/18at 13:00; Start 01/11/18 at 09:00; Status Future Hold Loratadine (Claritin) 10 mg DAILY PO Last administered on 01/11/18at 13:00; Start 01/11/18 at 09:00 Magnesium Hydroxide (Milk Of [place] Liq) 30 ml Q12H PRN PO Mild constipation ; Start 01/10/18 at 18:15 Metformin HCl (Glucophage) 1,000 mg BIDPC PO ; Start 01/11/18 at 09:00; Status Future Hold Miscellaneous Information 1 ONCE ONCE XX Last administered on 01/11/18at 10:15 ; Start 01/11/18 at 10:15; Stop 01/11/18 at 14:29; Status DC Morphine Sulfate (Morphine Inj) 4 mg Q3H PRN IV PUSH Pain 6-10;if unable to take PO; Start 01/10/18 at 18:15 Naloxone HCl (Narcan Inj) 0.4 mg UNSCH PRN IV PUSH SEE LABEL COMMENTS; Start at 18:15 Nitroglycerin (Nitroglycerin 2% Oint) 0.5 inch Q6HR TOPICAL Last administered on 01/12/18at 05:17; Start 01/11/18 at 08:00 Ondansetron HCl (Zofran Inj) 4 mg Q6H PRN IVP NAUSEA OR VOMITING; Start at 18:15 Papaverine HCl 60 mg/Nitroglycerin 100 mcg/Diltiazem HCl 100 mg/Sodium Chloride 100 ml @ 0 mls/hr AIRWAY CONTROLLER IRRIGATION ; Start 01/11/18 at 14:30; Stop 01/18/18 at 14:29 Sodium Chloride (NS Flush) 2 ml UNSCH PRN IV FLUSH FLUSH AFTER USING IV ACCESS ; Start 01/11/18 at 13:30 A/P Problem List: (1) Atrial flutter with rapid ventricular response ICD Code: I48.92 - Unspecified atrial flutter Status: Acute (2) Elevated troponin ICD Code: R74.8 - Abnormal levels of other serum enzymes Status: Acute (3) Hyperglycemia ICD Code: R73.9 - Hyperglycemia, unspecified Status: Acute Assessment and Plan New onset atrial flutter Chest pain NSTEMI s/p cardiac cath with multivessel disease continue aspirin and heparin drip continue Cardizem cardiology following. CT surgery consulted for CABG Diabetes mellitus type 2 A1c 8.8 hold metformin Follow blood sugars Insulin sliding scale Diabetic diet History of prostate cancer Follows in outpatient Hypothyroidism continue levothyroxine DVT prophylaxis Heparin Discharge Planning CT surgery consulted for CABG. Veronica Cheng MD Jan 12, 2018 07:35
[2018-01-12] MEDS ORDERED: ASPIRIN 81 MG CHEW TAB PO SCH (09:00)
[2018-01-12] MEDS: INSULIN ASPART SUPPLEMENTAL SCALE SQ SCH ×4 (09:15→20:22)
[2018-01-12] MEDS: FLUTICASONE PROPIONATE 50 MCG/ACT 16 GM NASAL SPRAY EACH NARE SCH ×2 (09:42→20:22)
[2018-01-12] MEDS: ASPIRIN EC 81 MG TABEC PO SCH (09:42)
[2018-01-12] MEDS: LORATADINE 10 MG TAB PO SCH (09:42)
[2018-01-12] MEDS: SODIUM CHLORIDE 0.9% FLUSH 10 ML FLUSH IV FLUSH SCH ×2 (09:43→20:22)
--- NOTE | 2018-01-12 09:50 | PD.CARD.PN ---
Subjective Subjective Remarks No angina Objective Medications Current Medications Medications (Trade) Dose Ordered Sig/Hien Route Start Time Stop Time Status Last Admin Diltiazem HCl 125 mg/Sodium Chloride 125 ml @ 5 mls/hr TITRATE PRN IV 01/10/18 15:45 01/10/18 16:13 (Zofran Inj) 4 mg Q6H PRN IVP 01/10/18 18:15 (Morphine Inj) 2 mg Q3H PRN IV PUSH 01/10/18 18:15 (Morphine Inj) 4 mg Q3H PRN IV PUSH 01/10/18 18:15 (Narcan Inj) 0.4 mg UNSCH PRN IV PUSH 01/10/18 18:15 (Milk Of Magnesia Liq) 30 ml Q12H PRN PO 01/10/18 18:15 (Cardizem Cd) 120 mg DAILY PO 01/11/18 09:00 01/11/18 11:00 (Synthroid) 125 mcg DAILY@0600 PO 01/11/18 06:00 01/12/18 05:17 (Glucophage) 1,000 mg BIDPC PO 01/11/18 09:00 Future Hold (Claritin) 10 mg DAILY PO 01/11/18 09:00 01/12/18 09:42 (Flonase Tulio Spr) 2 spray BID EACH NARE 01/10/18 21:00 01/12/18 09:42 (Prinivil) 20 mg DAILY PO 01/11/18 09:00 Future Hold 01/11/18 13:00 (Glucagon Inj) 1 mg UNSCH PRN OTHER 01/10/18 19:45 (NovoLOG SUPPLEMENTAL SCALE) 1 ACHS SLIDING SCALE SQ 01/10/18 21:00 01/12/18 09:15 (Ecotrin Ec) 81 mg DAILY PO 01/11/18 09:00 01/12/18 09:42 (Microzide) 12.5 mg DAILY PO 01/11/18 09:00 Future Hold 01/11/18 13:00 Sodium Chloride 1,000 ml @ 100 mls/hr Q10H IV 01/11/18 07:47 01/16/18 07:46 01/12/18 02:50 (Benadryl) 50 mg JUNCTION MAKER PO 01/11/18 08:00 01/15/18 07:59 (Valium) 5 mg JUNCTION MAKER PO 01/11/18 08:00 01/15/18 07:59 (Nitroglycerin 2% Oint) 0.5 inch Q6HR TOPICAL 01/11/18 08:00 01/12/18 05:17 (Heparin Inj) 5,000 units UNSCH PRN IV PUSH 01/11/18 16:15 01/11/18 23:29 (Heparin Inj) 2,500 units UNSCH PRN IV PUSH 01/11/18 16:15 01/12/18 06:39 Heparin Sodium/ Dextrose 250 ml @ 10 mls/hr TITRATE PRN IV 01/11/18 12:00 01/11/18 23:28 (Aspirin Chew) 81 mg DAILY PO 01/12/18 09:00 01/12/18 09:42 (NS Flush) 2 ml BID IV FLUSH 01/11/18 21:00 01/11/18 21:00 (NS Flush) 2 ml UNSCH PRN IV FLUSH 01/11/18 13:30 Papaverine HCl 60 mg/Nitroglycerin 100 mcg/Diltiazem HCl 100 mg/Sodium Chloride 100 ml @ 0 mls/hr JUNCTION MAKER IRRIGATION 01/11/18 14:30 01/18/18 14:29 Cefazolin Sodium 500 mg/Sodium Chloride 505 ml @ 0 mls/hr JUNCTION MAKER IRRIGATION 01/11/18 14:30 01/18/18 14:29 Cefazolin Sodium 3000 mg/Sodium Chloride 130 ml @ 200 mls/hr JUNCTION MAKER IV 01/11/18 13:30 01/18/18 13:29 (Hibiclens 4% Top Soln) 1 applic JUNCTION MAKER TOPICAL 01/11/18 13:30 01/18/18 13:29 Insulin Human Regular 100 units/ Sodium Chloride 100 ml @ 3 mls/hr TITRATE PRN IV 01/11/18 13:30 01/18/18 13:29 (D50w (Vial) Inj) 50 ml UNSCH PRN IV PUSH 01/11/18 13:30 Vital Signs / I&O Vital Signs Date Time Temp Pulse Resp B/P (MAP) Pulse Ox O2 Delivery O2 Flow Rate FiO2 01/12/18 06:03 63 01/12/18 05:18 66 01/12/18 04:29 68 01/12/18 03:30 61 01/12/18 03:20 98.0 61 18 108/68 (81) 98 01/12/18 02:33 56 01/12/18 01:38 64 01/12/18 00:00 62 01/11/18 23:20 98.3 64 19 105/65 (78) 95 01/11/18 23:00 57 01/11/18 22:00 68 01/11/18 21:00 68 01/11/18 20:30 68 01/11/18 19:50 75 01/11/18 19:30 98.2 61 20 135/63 (87) 97 01/11/18 18:01 67 01/11/18 17:09 63 01/11/18 16:00 65 01/11/18 15:46 98.0 64 18 118/59 (78) 95 01/11/18 15:46 63 01/11/18 15:00 64 118/59 01/11/18 10:09 98 Room Air I/O 01/11/18 01/11/18 01/11/18 01/12/18 01/12/18 01/12/18 06:59 14:59 22:59 06:59 14:59 22:59 Intake Total 240 ml 480 ml Output Total 1175 ml Balance 240 ml -695 ml Intake Oral 240 ml 480 ml Output Urine Total 1175 ml # Bowel Movements 0 0 Physical Exam Alert Tele AF with CVR Chest clear CV S1 S2 irr irr, no S# Right wrist OK, pulse intact Laboratory Laboratory Tests Test 01/11/18 22:00 01/11/18 23:49 01/12/18 04:46 Activated Partial Thromboplast Time 24.2 SEC 29.9 SEC Nasal Screen MRSA (PCR) MRSA NOT DETECTED White Blood Count 11.7 TH/MM3 Red Blood Count 4.51 MIL/MM3 Hemoglobin 13.0 GM/DL Hematocrit 38.2 % Mean Corpuscular Volume 84.8 FL Mean Corpuscular Hemoglobin 28.8 PG Mean Corpuscular Hemoglobin Concent 34.0 % Red Cell Distribution Width 13.9 % Platelet Count 260 TH/MM3 Mean Platelet Volume 8.3 FL Neutrophils (%) (Auto) 71.9 % Lymphocytes (%) (Auto) 18.9 % Monocytes (%) (Auto) 6.5 % Eosinophils (%) (Auto) 2.4 % Basophils (%) (Auto) 0.3 % Neutrophils # (Auto) 8.4 TH/MM3 Lymphocytes # (Auto) 2.2 TH/MM3 Monocytes # (Auto) 0.8 TH/MM3 Eosinophils # (Auto) 0.3 TH/MM3 Basophils # (Auto) 0.0 TH/MM3 CBC Comment DIFF FINAL Differential Comment Blood Urea Nitrogen 18 MG/DL Creatinine 0.84 MG/DL Random Glucose 217 MG/DL Calcium Level 7.7 MG/DL Sodium Level 138 MEQ/L Potassium Level 4.0 MEQ/L Chloride Level 105 MEQ/L Carbon Dioxide Level 25.2 MEQ/L Anion Gap 8 MEQ/L Estimat Glomerular Filtration Rate 91 ML/MIN Imaging Last 48 hours Impressions Lower Extremity Ultrasound 01/11/18 0000 Signed Impressions: Service Date/Time: Thursday, January 11, 2018 17:15 - CONCLUSION: Measurements as above with a varicose vein on the right side coming off the greater saphenous vein. Tavon Hernadez MD Lower Extremity Ultrasound 01/11/18 0000 Signed Impressions: Service Date/Time: Thursday, January 11, 2018 16:54 - CONCLUSION: Bilateral Salter's cysts and no evidence for DVT. Tavon Hernadez MD Carotid Artery Ultrasound 01/11/18 0000 Signed Impressions: Service Date/Time: Thursday, January 11, 2018 16:18 - CONCLUSION: No evidence for hemodynamically significant stenosis. Tavon Hernadez MD CT Angiography 01/10/18 1417 Signed Impressions: Service Date/Time: Wednesday, January 10, 2018 15:50 - CONCLUSION: 1. No acute intrathoracic process. In particular, no pulmonary emboli. 2. Significant coronary artery and aortic atherosclerotic calcifications. Jason Vega Jr., MD Chest X-Ray 01/10/18 1350 Signed Impressions: Service Date/Time: Wednesday, January 10, 2018 14:24 - CONCLUSION: No acute disease. Jason Vega Jr., MD Assessment and Plan Problem List: (1) Atrial fibrillation ICD Codes: I48.91 - Unspecified atrial fibrillation (2) Morbid obesity ICD Codes: E66.01 - Morbid (severe) obesity due to excess calories (3) Type 2 diabetes mellitus ICD Codes: E11.9 - Type 2 diabetes mellitus without complications (4) Multi-vessel coronary artery stenosis ICD Codes: I25.10 - Atherosclerotic heart disease of [place] coronary artery without angina pectoris (5) Non-STEMI (non-ST elevated myocardial infarction) ICD Codes: I21.4 - Non-ST elevation (NSTEMI) myocardial infarction Assessment and Plan Coronary anatomy more suitable for CABG then PCI. Appreciate eval by cardiac surgery for CABG Enrique Lopez MD Jan 12, 2018 09:50
--- NOTE | 2018-01-12 09:59 | PD.CAR.PN ---
CVT Progress Note Subjective/Hospital Course: A 67-year-old male that is visiting the area [place] the races from [place], [place], was driving down on Tuesday, stopped at a gas station, was pumping gas in [place] when he noticed some palpitations, became short of breath, had some diaphoresis. Lasted for approximately half an hour and later on developed a little bit of discomfort to his midsternum. Once he arrived in [facility] and went to his motel, he woke up Tuesday, showered and just did not feel very well, had some discomfort, had a little fluttering in his chest and it did not feel right. He came into the emergency room and was found to be in atrial fibrillation with RVR. He received some IV Cardizem which brought his heart rate back down to a normal rate. His chest discomfort was better, however, initial troponin was 13 at its highest. His BNP was 410. He was ruled in for non -ST-segment CT. He was evaluated by Dr. Enrique Lopez and underwent cardiac cath this morning which showed a 25% left main disease, the diagonal branch had a 50% stenosis, the LAD descending artery just past the first septal and first diagonal had a complex long severe stenosis at least 95% with some evidence of ulceration. There was a large ramus branch which had only some irregularities, the circ had about 40% mid stenosis, the RCA had a 90% ostial and proximal stenosis. We were consulted to evaluate for coronary artery bypass grafting. The patient also underwent 2-D echocardiogram which showed ejection fraction of 50-55%, no valvular heart disease. PAST MEDICAL HISTORY: Newly diagnosed diabetes mellitus ( HGB A1C 8.3) , Hypertension, Hypothyroidism and he takes levothyroxine, Morbidly obese with a BMI of 48, Cryo procedure for prostate cancer at [facility]. 01/12 carotid US ok US lowr ext ( bilateral bakers cyst) afib last pm, started on IV cardizem, now weaned off, dc IV fluids continue Heparin gtt for surgery in am Objective: GENERAL: SKIN: Warm and dry. HEAD: Normocephalic. EYES: No scleral icterus. No injection or drainage. NECK: Supple, trachea midline. No JVD or lymphadenopathy. CARDIOVASCULAR: Regular rate and rhythm without murmurs, gallops, or rubs. RESPIRATORY: Breath sounds equal bilaterally. No accessory muscle use. GASTROINTESTINAL: Abdomen soft, non-tender, nondistended. MUSCULOSKELETAL: No cyanosis, or edema. BACK: Nontender without obvious deformity. No CVA tenderness. Vital Signs Date Time Temp Pulse Resp B/P (MAP) Pulse Ox O2 Delivery O2 Flow Rate FiO2 01/12/18 06:03 63 01/12/18 05:18 66 01/12/18 04:29 68 01/12/18 03:30 61 01/12/18 03:20 98.0 61 18 108/68 (81) 98 01/12/18 02:33 56 01/12/18 01:38 64 01/12/18 00:00 62 01/11/18 23:20 98.3 64 19 105/65 (78) 95 01/11/18 23:00 57 01/11/18 22:00 68 01/11/18 21:00 68 01/11/18 20:30 68 01/11/18 19:50 75 01/11/18 19:30 98.2 61 20 135/63 (87) 97 01/11/18 18:01 67 01/11/18 17:09 63 01/11/18 16:00 65 01/11/18 15:46 98.0 64 18 118/59 (78) 95 01/11/18 15:46 63 01/11/18 15:00 64 118/59 01/11/18 10:09 98 Room Air Labs: Laboratory Tests Test 01/11/18 22:00 01/11/18 23:49 01/12/18 04:46 Activated Partial Thromboplast Time 24.2 SEC (24.3-30.1) 29.9 SEC (24.3-30.1) Nasal Screen MRSA (PCR) MRSA NOT DETECTED (NOT White Blood Count 11.7 TH/MM3 (4.0-11.0) Red Blood Count 4.51 MIL/MM3 (4.50-5.90) Hemoglobin 13.0 GM/DL (13.0-17.0) Hematocrit 38.2 % (39.0-51.0) Mean Corpuscular Volume 84.8 FL (80.0-100.0) Mean Corpuscular Hemoglobin 28.8 PG (27.0-34.0) Mean Corpuscular Hemoglobin Concent 34.0 % (32.0-36.0) Red Cell Distribution Width 13.9 % (11.6-17.2) Platelet Count 260 TH/MM3 (150-450) Mean Platelet Volume 8.3 FL (7.0-11.0) Neutrophils (%) (Auto) 71.9 % (16.0-70.0) Lymphocytes (%) (Auto) 18.9 % (9.0-44.0) Monocytes (%) (Auto) 6.5 % (0.0-8.0) Eosinophils (%) (Auto) 2.4 % (0.0-4.0) Basophils (%) (Auto) 0.3 % (0.0-2.0) Neutrophils # (Auto) 8.4 TH/MM3 (1.8-7.7) Lymphocytes # (Auto) 2.2 TH/MM3 (1.0-4.8) Monocytes # (Auto) 0.8 TH/MM3 (0-0.9) Eosinophils # (Auto) 0.3 TH/MM3 (0-0.4) Basophils # (Auto) 0.0 TH/MM3 (0-0.2) CBC Comment DIFF FINAL Differential Comment Blood Urea Nitrogen 18 MG/DL (7-18) Creatinine 0.84 MG/DL (0.60-1.30) Random Glucose 217 MG/DL (74-106) Calcium Level 7.7 MG/DL (8.5-10.1) Sodium Level 138 MEQ/L (136-145) Potassium Level 4.0 MEQ/L (3.5-5.1) Chloride Level 105 MEQ/L (98-107) Carbon Dioxide Level 25.2 MEQ/L (21.0-32.0) Anion Gap 8 MEQ/L (5-15) Estimat Glomerular Filtration Rate 91 ML/MIN (>89) Result Diagram: 01/12/18 0446 01/12/18 0446 (1) Atrial fibrillation Plan: on cardizem, heparin (2) Morbid obesity Plan: will need weight loss program 4-6 weeks post surgery, will have lens cutter speak with pt (3) Type 2 diabetes mellitus Plan: family living educator consult HGB A1C 8.3 (4) Non-STEMI (non-ST elevated myocardial infarction) Plan: ASA, statin . heparin (5) Multi-vessel coronary artery stenosis Vandana Waddell Jan 12, 2018 09:59
[2018-01-12] MEDS: HEPARIN-D5W 25,000 U/250 ML 250 ML IV PRN (19:15)
[2018-01-12] MEDS: ATORVASTATIN 40 MG TAB PO SCH (20:22)
[2018-01-12 22:48] LABS: BACTERIA, URINE RARE /hpf; BILIRUBIN, URINE NEG (NEG); BLOOD, URINE NEG (NEG); GLUCOSE,URINE 1000 mg/dL (NEG); KETONE, URINE NEG (NEG); MUCUS URINE FEW /lpf (OCC); NITRITE,URINE NEG (NEG); URINE COLOR LIGHT-YELLOW (YELLW/STRAW); URINE LEUKOCYTE ESTERASE NEG (NEG)
[2018-01-13] VITALS (18 sets, daily range): BP systolic 90–155; BP diastolic 51–78; PULSE 60–92; RESP 16–22; TEMP 98.1–98.9; O2SAT 87–98
[2018-01-13] MEDS: NITROGLYCERIN 2% OINT 1 GM PACKET TOPICAL SCH ×2 (00:13→05:52)
[2018-01-13] MEDS: LEVOTHYROXINE SODIUM 125 MCG TAB PO SCH (05:51)
[2018-01-13] MEDS ORDERED: CHLORHEXIDINE GLUCONATE 2 % 1 PACK (2 CLOTHS) TOPICAL PRN (06:00)
[2018-01-13] MEDS ORDERED: POVIDONE IODINE 5% (ANTISEPSIS KIT) 4 APPLICATIONS EACH NARE PRN (06:00)
[2018-01-13] MEDS ORDERED: METOPROLOL TARTRATE 25 MG TAB PO PRN (06:00)
[2018-01-13] MEDS ORDERED: LACTATED RINGER'S 1000 ML IV PRN (06:00)
[2018-01-13] MEDS ORDERED: SODIUM CHLORID 0.9% 500 ML IV PRN (06:00)
[2018-01-13] MEDS ORDERED: HEPARIN SODIUM - SQ 10,000 UNITS/ML VIAL ONE (06:16)
[2018-01-13] MEDS ORDERED: VANCOMYCIN HCL 1000 MG VIAL ONE (06:17)
[2018-01-13] MEDS ORDERED: ceFAZolin 2 GM PREMIX 0 ML ONE (06:17)
[2018-01-13] MEDS: DILTIAZEM-CD 240 MG CAP ER PO SCH (09:00)
[2018-01-13] MEDS: LORATADINE 10 MG TAB PO SCH (09:00)
[2018-01-13] MEDS: SODIUM CHLOR 0.9% 1000 ML INJ 1,000 ML IV SCH ×2 (09:47→19:47)
[2018-01-13] MEDS ORDERED: DOBUTamine PREMIX DRIP 250 ML IV PRN (12:27)
[2018-01-13] MEDS ORDERED: LACTATED RINGER'S 1000 ML INJ 500 ML IV PRN (12:27)
[2018-01-13] MEDS ORDERED: RESP: ALBUTEROL 2.5 MG/IPRATROPIUM 0.5 MG NEB (PRN) NEB (12:30)
[2018-01-13] MEDS ORDERED: CALCIUM CHLORIDE INJ 1 GM in SODIUM CHLORIDE 0.9% INJ 100 ML IV PRN ×2 (12:30→17:00)
[2018-01-13] MEDS ORDERED: DOPamine INJ PREMIX 500 ML IV PRN (12:30)
[2018-01-13] MEDS ORDERED: PHENYLEPHRINE INJ 40 MG in DEXTROSE 5% IN WATE 500 ML INJ 496 ML IV PRN ×2 (12:30)
[2018-01-13] MEDS ORDERED: MORPHINE SULFATE 4 MG/ML INJ IV PUSH PRN (12:30)
[2018-01-13] MEDS ORDERED: ceFAZolin 2 GM PREMIX 50 ML ONE (12:30)
[2018-01-13] MEDS ORDERED: ONDANSETRON HCL 4 MG/2 ML VIAL IV PUSH PRN (12:30)
[2018-01-13] MEDS ORDERED: NITROGLYCERIN-D5W 50 MG/250 ML 250 ML IV PRN (12:30)
[2018-01-13] MEDS ORDERED: DEXMEDETOMIDINE INJ 200 MCG in SODIUM CHLORIDE 0.9% INJ 50 ML IV PRN (12:30)
[2018-01-13] MEDS ORDERED: SODIUM BICARBONATE 8.4% SOLN 50 MEQ/50 ML VIAL IV PUSH PRN ×2 (12:30)
[2018-01-13] MEDS ORDERED: ALBUMIN 5% INJ 250 ML IV PRN (12:30)
[2018-01-13] MEDS ORDERED: ACETAMINOPHEN/HYDROcodone 325 MG/5 MG TAB PO PRN (12:30)
[2018-01-13] MEDS ORDERED: SODIUM CHLORIDE 0.9% FLUSH 10 ML FLUSH IV FLUSH PRN (12:30)
[2018-01-13] MEDS ORDERED: Post-op Orders (for Pharmacy) OTHER ONE (12:30)
[2018-01-13] MEDS ORDERED: MEPERIDINE HCL 25 MG/ML VIAL IV PUSH PRN (12:30)
[2018-01-13] MEDS ORDERED: ACETAMINOPHEN 325 MG TAB PO PRN (12:30)
[2018-01-13] MEDS ORDERED: RESP: RACEPINEPHRINE 2.25% 0.5 ML NEB NEB PRN (12:30)
[2018-01-13] MEDS ORDERED: MAGNESIUM SULFATE INJ 2 GM in SODIUM CHLORIDE 0.9% INJ 100 ML IV PRN ×4 (12:30)
[2018-01-13] MEDS ORDERED: POTASSIUM CHLORIDE 20 MEQ CONTROLLED RELEASE TAB PO PRN ×2 (12:30)
[2018-01-13] MEDS ORDERED: CALCIUM CHLORIDE 10% 1 GRAM/10 ML VIAL IV PUSH PRN (12:30)
[2018-01-13] MEDS ORDERED: POTASSIUM CHLOR 20 MEQ PREMIX 100 ML IV PRN ×3 (12:30)
[2018-01-13] MEDS ORDERED: ACETAMINOPHEN 650 MG SUPP RECTAL PRN (12:30)
[2018-01-13] MEDS ORDERED: DEXTROSE 50% IN WATER 50 ML VIAL(D50) IV PUSH PRN (12:30)
[2018-01-13] MEDS ORDERED: ceFAZolin INJ 1,000 MG VIAL IV ONE (12:32)
--- NOTE | 2018-01-13 12:38 | PD.OP ---
cc: Coco Meneses MD; Enrique Lopez MD Operative Report Date of Surgery: Jan 13, 2018 Preoperative Diagnosis: Postoperative Diagnosis: Procedure: 1. Urgent Off-pump Coronary Artery Bypass Grafting x 2 with Left Internal Mammary Artery (CANTU) to the Left Anterior Descending (LAD), reverse saphenous vein graft to the Right Coronary Artery (RCA) 2. Intraoperative Vein Mapping 3. Left Leg Endoscopic Vein [place] 4. Biomet Sterna-Lock Sternal Plating System Surgeon: Coco Meneses Tube Rebuilder(s): Rufino Cunningham Operation and Findings: PREPROCEDURE DIAGNOSES 1. Two-Vessel Coronary Artery Disease. 2. Unstable Angina 3. Morbid Obesity 4. Diabetes mellitus POSTPROCEDURE DIAGNOSES Same SURGICAL PROCEDURE 1. Urgent Off-pump Coronary Artery Bypass Grafting x 2 with Left Internal Mammary Artery (CANTU) to the Left Anterior Descending (LAD), reverse saphenous vein graft to the Right Coronary Artery (RCA) 2. Intraoperative Vein Mapping 3. Left Leg Endoscopic Vein [place] 4. Biomet Sterna-Lock Sternal Plating System SURGEON Coco Meneses MD DIRECTOR CASE Gregg Cunningham PLANT BREEDER SCIENTIST ANESTHESIA General endotracheal [employer] HEAD WILLEM Bynum MD PREPARATION ChloraPrep. COUNTS Needle, sponge, and instrument counts were correct. DRAINS Two 32-Sinhala mediastinal tubes. COMPLICATIONS None. INDICATIONS FOR PROCEDURE The patient is a 67-year-old morbidly obese gentleman presenting with CP and two -vessel CAD. He is being brought to the operating room for urgent surgical revascularization therapy. PROCEDURE Patient was brought to the operating room and placed supine on the OR table. Following the induction of adequate general endotracheal anesthesia and placement of appropriate monitoring devices, intraoperative vein mapping was performed which revealed suitable caliber conduit in both lower extremities. The patient was prepped and draped in standard sterile fashion. Next, 2500 units of intravenous heparin was given. The left greater saphenous vein was harvested endoscopically from the thigh. This appeared to be a large but usable- caliber conduit. Simultaneously, a median sternotomy was performed and the left internal mammary artery dissected free off the posterior sternal table. The patient was systemically heparinized and anticoagulation monitored by serial ACT measurements. The internal mammary artery had good pulsatile flow in it and was a decent-caliber conduit. The pericardium was then divided in the midline, the cradle created and targets analyzed. At this point, all anastomoses were performed in a beating-heart fashion using the Ma[place] stabilizing system. The left internal mammary artery was then anastomosed to the distal LAD (1.75 mm) in an end-to-side fashion using 7-0 Prolene. The RSVG segment was then anastomosed to the RCA (4.5 mm) in an end-to-side fashion using a running 7-0 Prolene. The proximal anastomosis was then constructed to the ascending aorta in a running manner using 6-0 Prolene. All anastomotic sites were inspected and appeared to be hemostatic and patent. Protamine solution was given. Strict hemostasis was assured. The closure was undertaken. 2 chest tubes were placed. The pericardium was reapproximated in the midline. The sternum was approximated using 3 sternal wires and the Biomet Sterna-Lock plating system. 4 plates were used...one in the manubrium, two in the mid- sternal body and a curved plate in the inferior portion. The muscular and fascial layer were then closed in 3 layers. The endoscopic vein harvest site was closed in 2 layers. The patient tolerated the procedure well and was transferred to CVICU in critical but stable condition. Coco Meneses MD Jan 13, 2018 12:38
[2018-01-13] MEDS: INSULIN REGULAR (IV INFUSION) 100 UNITS in SODIUM CHLORIDE 0.9% INJ 99 ML IV PRN ×2 (13:00→19:13)
[2018-01-13] MEDS ORDERED: MIDAZOLAM HCL 2 MG/2 ML VIAL ONE (13:16)
[2018-01-13] MEDS ORDERED: fentaNYL CITRATE 1000 MCG/20 ML VIAL ONE (13:16)
[2018-01-13] MEDS: CLEVIDIPINE INJ 50 ML IV PRN ×4 (13:35→21:42)
--- NOTE | 2018-01-13 13:35 | RADRPT ---
EXAM DATE/TIME: 01/13/2018 13:15 [facility] COMPARISON: CHEST PA & LAT, January 10, 2018, 14:24. INDICATIONS : Post CABG. MEDICAL HISTORY : Hypertension. Carcinoma, prostate. Thyroid disease. Palpitations. Diabetes. SURGICAL HISTORY : Tonsillectomy. Right shoulder surgery. Cryotherapy. Hernia repair. Cardiac cath. ENCOUNTER: Subsequent ACUITY: 1 day PAIN SCORE: Non-responsive. LOCATION: Bilateral chest FINDINGS: Interval median sternotomy with postsurgical features of CABG. ETT in good position. NGT in the stoma ch. Mediastinal drain and left apical chest tube in place. Right IJ introducer in place. The lungs ar e hypoaerated with mild interstitial prominence. No significant pneumothorax. Cardiomediastinal conto urs are grossly stable. Remainder of the exam is unchanged. CONCLUSION: 1. Expected postoperative features of CABG with lines and tubes, as above. 2. No pneumothorax. Raul Basilio MD on January 13, 2018 at 13:29 Board Certified Radiologist. This report was verified electronically.
[2018-01-13] MEDS: ACETAMINOPHEN 1000 MG/100 ML 100 ML IV SCH ×2 (13:53→20:07)
[2018-01-13] MEDS: RESP: ALBUTEROL 2.5 MG/IPRATROPIUM 0.5 MG NEB (SCH) NEB ×2 (15:11→21:26)
[2018-01-13] MEDS: KETOROLAC TROMETHAMINE 30 MG/ML (IVP) VIAL IV PUSH PRN ×2 (15:35→22:51)
[2018-01-13] MEDS: hydrALAZINE HCL 20 MG/ML VIAL IV PUSH PRN (18:02)
[2018-01-13] MEDS: ceFAZolin 2 GM PREMIX 50 ML IV SCH (20:08)
[2018-01-13] MEDS: FLUTICASONE PROPIONATE 50 MCG/ACT 16 GM NASAL SPRAY EACH NARE SCH (21:00)
[2018-01-13] MEDS: SODIUM CHLORIDE 0.9% FLUSH 10 ML FLUSH IV FLUSH SCH (21:33)
[2018-01-13] MEDS: AMIODARONE 200 MG TAB PO SCH (21:33)
[2018-01-13] MEDS: ATORVASTATIN 40 MG TAB PO SCH (21:33)
[2018-01-14] VITALS (12 sets, daily range): BP systolic 136–155; BP diastolic 60–76; PULSE 70–152; RESP 16–22; TEMP 97.6–98.6; O2SAT 95–98
[2018-01-14] MEDS: CLEVIDIPINE INJ 50 ML IV PRN ×2 (00:55→05:56)
[2018-01-14] MEDS: ACETAMINOPHEN 1000 MG/100 ML 100 ML IV SCH ×2 (03:00→08:14)
[2018-01-14] MEDS: RESP: ALBUTEROL 2.5 MG/IPRATROPIUM 0.5 MG NEB (SCH) NEB ×4 (03:44→19:51)
--- NOTE | 2018-01-14 04:40 | RADRPT ---
EXAM DATE/TIME: 01/14/2018 04:09 [facility] COMPARISON: CHEST SINGLE AP, January 13, 2018, 13:15. INDICATIONS : Shortness of breath, possible pulmonary disease. MEDICAL HISTORY : Hypertension. Carcinoma, prostatic. Diabetes mellitus type II. SURGICAL HISTORY : CABG. Tonsillectomy. ENCOUNTER: Subsequent ACUITY: 2 days PAIN SCORE: 10/10 LOCATION: Bilateral chest FINDINGS: Chest tube is present on the left side. No definite pneumothorax is seen for technique. Mild left natacha g base atelectasis and/or infiltrate is seen. There is also slight atelectasis right lower lung. Mild pulmonary venous congestion is difficult to exclude. CONCLUSION: Mild left lung base atelectasis and/or infiltrate is seen and slight right lower lung atelectasis. Tavon Hernadez MD on January 14, 2018 at 4:38 Board Certified Radiologist. This report was verified electronically.
[2018-01-14 04:52] LABS: HEMATOCRIT 38.6 % (39.0-51.0); HEMOGLOBIN 13.1 GM/DL (13.0-17.0); MEAN CELL VOLUME 84.5 FL (80.0-100.0); MEAN CORPUSCULAR HEMOGLOBIN 28.7 PG (27.0-34.0); MEAN CORPUSCULAR HGB CONC 33.9 % (32.0-36.0); MEAN PLATELET VOLUME 8.5 FL (7.0-11.0); PLATELET COUNT 256 TH/MM3 (150-450); RED BLOOD COUNT 4.56 MIL/MM3 (4.50-5.90); RED CELL DISTRIBUTION WIDTH 14.2 % (11.6-17.2); WHITE BLOOD COUNT 17.2 TH/MM3 (4.0-11.0)
[2018-01-14 05:21] LABS: BICARBONATE 23.5 MEQ/L (21.0-32.0); CALCIUM 8.3 MG/DL (8.5-10.1); CREATININE 0.83 MG/DL (0.60-1.30); MAGNESIUM 1.9 MG/DL (1.5-2.5)
[2018-01-14] MEDS: SODIUM CHLOR 0.9% 1000 ML INJ 1,000 ML IV SCH ×2 (05:47→07:56)
[2018-01-14] MEDS: ceFAZolin 2 GM PREMIX 50 ML IV SCH ×3 (05:50→21:37)
[2018-01-14] MEDS: PANTOPRAZOLE SOD 40 MG DELAYED RELEASE TAB PO SCH (05:51)
[2018-01-14] MEDS: LEVOTHYROXINE SODIUM 125 MCG TAB PO SCH (05:51)
[2018-01-14] MEDS: FLUTICASONE PROPIONATE 50 MCG/ACT 16 GM NASAL SPRAY EACH NARE SCH ×2 (08:14→21:00)
[2018-01-14] MEDS: AMIODARONE 200 MG TAB PO SCH ×2 (08:15→21:35)
[2018-01-14] MEDS: LORATADINE 10 MG TAB PO SCH (08:15)
[2018-01-14] MEDS: KETOROLAC TROMETHAMINE 30 MG/ML (IVP) VIAL IV PUSH PRN (08:15)
[2018-01-14] MEDS: ASPIRIN 81 MG CHEW TAB PO SCH (08:16)
[2018-01-14] MEDS: SODIUM CHLORIDE 0.9% FLUSH 10 ML FLUSH IV FLUSH SCH ×2 (08:16→21:37)
[2018-01-14] MEDS: DILTIAZEM-CD 240 MG CAP ER PO SCH (08:16)
[2018-01-14] MEDS: CLOPIDOGREL 75 MG TAB PO SCH (08:17)
[2018-01-14] MEDS ORDERED: DEXTROSE 50% IN WATER 50 ML VIAL(D50) IV PUSH PRN (10:15)
[2018-01-14] MEDS ORDERED: BISACODYL 10 MG SUPP RECTAL PRN (10:15)
[2018-01-14] MEDS ORDERED: GLUCAGON 1 MG/ML VIAL OTHER PRN (10:15)
--- NOTE | 2018-01-14 10:21 | PD.CAR.PN ---
CVT Progress Note CVT: POD #: 1 Subjective/Hospital Course: A 67-year-old male that is visiting the area for the races from [place], [place], was driving down on Tuesday, stopped at a gas station, was pumping gas in [place] when he noticed some palpitations, became short of breath, had some diaphoresis. Lasted for approximately half an hour and later on developed a little bit of discomfort to his midsternum. Once he arrived in [facility] and went to his motel, he woke up Tuesday, showered and just did not feel very well, had some discomfort, had a little fluttering in his chest and it did not feel right. He came into the emergency room and was found to be in atrial fibrillation with RVR. He received some IV Cardizem which brought his heart rate back down to a normal rate. His chest discomfort was better, however, initial troponin was 13 at its highest. His BNP was 410. He was ruled in for non -ST-segment [place]. He was evaluated by Dr. Enrique Lopez and underwent cardiac cath this morning which showed a 25% left main disease, the diagonal branch had a 50% stenosis, the LAD descending artery just past the first septal and first diagonal had a complex long severe stenosis at least 95% with some evidence of ulceration. There was a large ramus branch which had only some irregularities, the circ had about 40% mid stenosis, the RCA had a 90% ostial and proximal stenosis. We were consulted to evaluate for coronary artery bypass grafting. The patient also underwent 2-D echocardiogram which showed ejection fraction of 50-55%, no valvular heart disease. PAST MEDICAL HISTORY: Newly diagnosed diabetes mellitus ( HGB A1C 8.3) , Hypertension, Hypothyroidism and he takes levothyroxine, Morbidly obese with a BMI of 48, [facility] procedure [facility]. 01/12 carotid US ok US lowr ext ( bilateral bakers cyst) afib last pm, started on IV cardizem, now weaned off, dc IV fluids continue Heparin gtt for surgery in am 01/14/18 Doing well No complaints Objective: Vital Signs Date Time Temp Pulse Resp B/P (MAP) Pulse Ox O2 Delivery O2 Flow Rate FiO2 01/14/18 08:03 95 Nasal Cannula 4.00 01/14/18 08:00 98.4 89 16 138/67 (90) 95 140/62 (88) 01/14/18 07:00 90 01/14/18 05:56 89 158/60 01/14/18 03:30 20 01/14/18 03:04 79 155/61 01/14/18 03:00 98.6 78 20 136/71 (92) 98 155/61 (92) 01/14/18 03:00 85 01/14/18 00:55 77 138/60 01/13/18 23:55 20 01/13/18 23:55 20 01/13/18 23:09 87 123/54 01/13/18 23:00 82 01/13/18 23:00 98.2 77 22 113/58 (76) 97 127/51 (76) 01/13/18 21:42 84 146/57 01/13/18 21:38 97 Nasal Cannula 4.00 01/13/18 19:00 89 01/13/18 19:00 98.1 82 20 147/54 (85) 97 140/59 (86) 01/13/18 18:03 73 140/60 01/13/18 16:19 98.6 01/13/18 15:36 71 130/55 01/13/18 15:05 90 Nasal Cannula 5.00 01/13/18 15:05 90 Nasal Cannula 5 01/13/18 15:00 80 01/13/18 15:00 79 142/70 01/13/18 15:00 98.2 79 22 127/73 (91) 87 142/70 (94) 01/13/18 14:44 98.6 01/13/18 14:21 92 60 01/13/18 14:00 66 123/61 01/13/18 13:45 84 126/65 01/13/18 13:38 113 154/71 01/13/18 13:35 91 148/80 01/13/18 13:06 97 50 01/13/18 13:03 98.6 01/13/18 13:00 98.9 60 20 90/52 (65) 98 01/13/18 13:00 60 01/13/18 13:00 60 Labs: Laboratory Tests Test 01/14/18 04:35 White Blood Count 17.2 TH/MM3 (4.0-11.0) Red Blood Count 4.56 MIL/MM3 (4.50-5.90) Hemoglobin 13.1 GM/DL (13.0-17.0) Hematocrit 38.6 % (39.0-51.0) Mean Corpuscular Volume 84.5 FL (80.0-100.0) Mean Corpuscular Hemoglobin 28.7 PG (27.0-34.0) Mean Corpuscular Hemoglobin Concent 33.9 % (32.0-36.0) Red Cell Distribution Width 14.2 % (11.6-17.2) Platelet Count 256 TH/MM3 (150-450) Mean Platelet Volume 8.5 FL (7.0-11.0) Blood Urea Nitrogen 19 MG/DL (7-18) Creatinine 0.83 MG/DL (0.60-1.30) Random Glucose 153 MG/DL (74-106) Calcium Level 8.3 MG/DL (8.5-10.1) Magnesium Level 1.9 MG/DL (1.5-2.5) Sodium Level 136 MEQ/L (136-145) Potassium Level 3.8 MEQ/L (3.5-5.1) Chloride Level 105 MEQ/L (98-107) Carbon Dioxide Level 23.5 MEQ/L (21.0-32.0) Anion Gap 8 MEQ/L (5-15) Estimat Glomerular Filtration Rate 93 ML/MIN (>89) Result Diagram: 01/14/18 0435 01/14/18 0435 Imaging: Last 24 hours Impressions Chest X-Ray 01/14/18 0500 Signed Impressions: Service Date/Time: Sunday, January 14, 2018 04:09 - CONCLUSION: Mild left lung base atelectasis and/or infiltrate is seen and slight right lower lung atelectasis. Tavon Hernadez MD Cardiovascular: RRR Telemetry: NSR Pulmonary: Decreased BS bilat GI/: NABS Incision: dry and intact CT: 130ml/12hrs Plan: Transfer to stepdown Diurese Adv diet Restart metformin Cont chest tubes Encourage ambulation (1) Atrial fibrillation Plan: on cardizem, heparin (2) Morbid obesity Plan: will need weight loss program 4-6 weeks post surgery, will have international project manager speak with pt (3) Type 2 diabetes mellitus Plan: sweet pickle maker consult HGB A1C 8.3 (4) Non-STEMI (non-ST elevated myocardial infarction) Plan: ASA, statin . heparin (5) Multi-vessel coronary artery stenosis Adelina Rodriguez MD Jan 14, 2018 10:21
[2018-01-14] MEDS: oxyCODONE/ACETAMINOPHEN 5 MG/325 MG TAB PO PRN ×2 (11:40→18:05)
[2018-01-14] MEDS: POTASSIUM CHLORIDE 10 MEQ CONTROLLED RELEASE TAB PO SCH ×2 (12:43→21:36)
[2018-01-14] MEDS: METOPROLOL TARTRATE 25 MG TAB PO SCH ×2 (12:43→21:35)
[2018-01-14] MEDS ORDERED: FUROSEMIDE 40 MG/4 ML VIAL IV PUSH ONE (12:45)
[2018-01-14] MEDS: hydrALAZINE HCL 20 MG/ML VIAL IV PUSH PRN (13:23)
[2018-01-14] MEDS: METOPROLOL TARTRATE 5 MG/5 ML VIAL IV PUSH PRN (13:24)
--- NOTE | 2018-01-14 13:56 | EKG ---
Date Performed: 01/14/2018 Time Performed: 04:48:38 PTAGE: 67 years EKG: Sinus rhythm with PAC(s) Inferior infarct - age undetermined Late R-wave transition Low QRS voltages in precordia l leads Abnormal ECG PREVIOUS TRACING : 01/11/2018 02.41.24 DOCTOR: Varun Damon Interpretating Date/Time 01/14/2018 13:56:15
[2018-01-14] MEDS: INSULIN ASPART SUPPLEMENTAL SCALE SQ SCH ×3 (15:43→22:28)
[2018-01-14] MEDS: FUROSEMIDE 40 MG/4 ML VIAL IV PUSH SCH (17:58)
[2018-01-14] MEDS: metFORMIN HCL 500 MG TAB PO SCH (18:00)
[2018-01-14] MEDS: DOCUSATE SODIUM 100 MG CAP PO SCH (21:35)
[2018-01-14] MEDS: ATORVASTATIN 40 MG TAB PO SCH (21:36)
[2018-01-14] MEDS: SENNOSIDES 8.6 MG TAB PO SCH (21:36)
[2018-01-14] MEDS ORDERED: AMIODARONE 150 MG/D5W 97 ML BOLUS 10 MINUTES IV ONE ×2 (23:15)
[2018-01-14] MEDS: MAGNESIUM SULFATE 1 GM PREMIX 100 ML IV SCH (23:26)
[2018-01-15] VITALS (23 sets, daily range): BP systolic 107–148; BP diastolic 54–75; PULSE 70–121; RESP 18–22; TEMP 97.7–98.6; O2SAT 94–98
[2018-01-15] MEDS: MAGNESIUM SULFATE 1 GM PREMIX 100 ML IV SCH (00:53)
[2018-01-15] MEDS: SODIUM CHLOR 0.9% 1000 ML INJ 1,000 ML IV SCH ×3 (00:53→21:47)
[2018-01-15] MEDS: INSULIN ASPART SUPPLEMENTAL SCALE SQ SCH ×6 (02:27→20:34)
[2018-01-15] MEDS: ceFAZolin 2 GM PREMIX 50 ML IV SCH (04:18)
[2018-01-15] MEDS: PANTOPRAZOLE SOD 40 MG DELAYED RELEASE TAB PO SCH (05:42)
[2018-01-15] MEDS: LEVOTHYROXINE SODIUM 125 MCG TAB PO SCH (05:42)
[2018-01-15 05:55] LABS: AUTOMATED NEUTROPHIL # 14.6 TH/MM3 (1.8-7.7); BASOPHIL # 0.1 TH/MM3 (0-0.2); BASOPHIL % 0.7 % (0.0-2.0); EOSINOPHIL % 0.2 % (0.0-4.0); HEMATOCRIT 38.2 % (39.0-51.0); LYMPH % 8.1 % (9.0-44.0); LYMPHOCYTE # 1.4 TH/MM3 (1.0-4.8); MEAN CELL VOLUME 85.1 FL (80.0-100.0); MEAN CORPUSCULAR HGB CONC 34.1 % (32.0-36.0); MEAN PLATELET VOLUME 8.8 FL (7.0-11.0); MONO % 8.6 % (0.0-8.0); MONOCYTE # 1.5 TH/MM3 (0-0.9); NEUT % 82.4 % (16.0-70.0); PLATELET COUNT 316 TH/MM3 (150-450); RED BLOOD COUNT 4.49 MIL/MM3 (4.50-5.90); RED CELL DISTRIBUTION WIDTH 14.2 % (11.6-17.2); WHITE BLOOD COUNT 17.7 TH/MM3 (4.0-11.0)
[2018-01-15 06:34] LABS: BICARBONATE 23.9 MEQ/L (21.0-32.0); CALCIUM 8.7 MG/DL (8.5-10.1); CREATININE 1.19 MG/DL (0.60-1.30); MAGNESIUM 2.5 MG/DL (1.5-2.5)
[2018-01-15] MEDS: oxyCODONE/ACETAMINOPHEN 5 MG/325 MG TAB PO PRN ×2 (07:31→14:23)
[2018-01-15] MEDS: POLYETHYLENE GLYCOL 17 GM PKG PO SCH (08:51)
[2018-01-15] MEDS: MAGNESIUM HYDROXIDE SUSP 30 ML CUP PO SCH (08:51)
[2018-01-15] MEDS: FUROSEMIDE 40 MG/4 ML VIAL IV PUSH SCH ×2 (08:52→17:30)
[2018-01-15] MEDS: RESP: ALBUTEROL 2.5 MG/IPRATROPIUM 0.5 MG NEB (SCH) NEB ×4 (08:52→20:43)
[2018-01-15] MEDS: LORATADINE 10 MG TAB PO SCH (08:52)
[2018-01-15] MEDS: AMIODARONE 200 MG TAB PO SCH ×2 (08:52→20:22)
[2018-01-15] MEDS: SODIUM CHLORIDE 0.9% FLUSH 10 ML FLUSH IV FLUSH SCH ×2 (08:52→20:22)
[2018-01-15] MEDS: CLOPIDOGREL 75 MG TAB PO SCH (08:52)
[2018-01-15] MEDS: METOPROLOL TARTRATE 25 MG TAB PO SCH ×2 (08:53→20:22)
[2018-01-15] MEDS: POTASSIUM CHLORIDE 10 MEQ CONTROLLED RELEASE TAB PO SCH ×2 (08:53→20:21)
[2018-01-15] MEDS: metFORMIN HCL 500 MG TAB PO SCH (08:54)
[2018-01-15] MEDS: ASPIRIN 81 MG CHEW TAB PO SCH (08:54)
[2018-01-15] MEDS: MULTIVITAMINS/MINERALS THERAPEUTIC TAB PO SCH (08:54)
[2018-01-15] MEDS: DILTIAZEM-CD 240 MG CAP ER PO SCH (08:55)
[2018-01-15] MEDS: DOCUSATE SODIUM 100 MG CAP PO SCH ×2 (08:55→20:21)
[2018-01-15] MEDS: FLUTICASONE PROPIONATE 50 MCG/ACT 16 GM NASAL SPRAY EACH NARE SCH ×2 (08:56→20:22)
[2018-01-15] MEDS: METOPROLOL TARTRATE 5 MG/5 ML VIAL IV PUSH PRN (10:15)
--- NOTE | 2018-01-15 10:45 | PD.CAR.PN ---
CVT Progress Note CVT: POD #: 2 Subjective/Hospital Course: A 67-year-old male that is visiting the area for the races from [place], [place], was driving down on Tuesday, stopped at a gas station, was pumping gas in [place] when he noticed some palpitations, became short of breath, had some diaphoresis. Lasted for approximately half an hour and later on developed a little bit of discomfort to his midsternum. Once he arrived in [facility] and went to his motel, he woke up Tuesday, showered and just did not feel very well, had some discomfort, had a little fluttering in his chest and it did not feel right. He came into the emergency room and was found to be in atrial fibrillation with RVR. He received some IV Cardizem which brought his heart rate back down to a normal rate. His chest discomfort was better, however, initial troponin was 13 at its highest. His BNP was 410. He was ruled in for non -ST-segment [place]. He was evaluated by Dr. Enrique Lopez and underwent cardiac cath this morning which showed a 25% left main disease, the diagonal branch had a 50% stenosis, the LAD descending artery just past the first septal and first diagonal had a complex long severe stenosis at least 95% with some evidence of ulceration. There was a large ramus branch which had only some irregularities, the circ had about 40% mid stenosis, the RCA had a 90% ostial and proximal stenosis. We were consulted to evaluate for coronary artery bypass grafting. The patient also underwent 2-D echocardiogram which showed ejection fraction of 50-55%, no valvular heart disease. PAST MEDICAL HISTORY: Newly diagnosed diabetes mellitus ( HGB A1C 8.3) , Hypertension, Hypothyroidism and he takes levothyroxine, Morbidly obese with a BMI of 48, Cryo procedure for prostate cancer at [facility]. 01/12 carotid US ok US lowr ext ( bilateral bakers cyst) afib last pm, started on IV cardizem, now weaned off, dc IV fluids continue Heparin gtt for surgery in am 01/14/18 Doing well No complaints 01/15/18 No complaints, doing well AFIB last night - converted Objective: Vital Signs Date Time Temp Pulse Resp B/P (MAP) Pulse Ox O2 Delivery O2 Flow Rate FiO2 01/15/18 08:50 96 Nasal Cannula 2.00 01/15/18 08:31 18 2/18/18 07:50 98.6 112 20 148/73 (98) 98 01/15/18 07:00 112 01/15/18 04:00 98.5 114 20 131/68 (89) 98 01/15/18 03:35 121 01/15/18 00:00 98.5 106 22 115/73 (87) 94 01/14/18 23:26 113 145/69 01/14/18 23:00 122 01/14/18 21:50 152 01/14/18 20:00 97.6 84 22 137/60 (85) 96 01/14/18 20:00 83 01/14/18 19:51 97 Nasal Cannula 2.00 01/14/18 15:48 98.5 70 20 137/68 (91) 95 01/14/18 15:00 71 01/14/18 11:22 98.3 90 20 142/76 (98) 95 Arterial Line 01/14/18 11:00 98 Labs: Laboratory Tests Test 01/15/18 05:35 White Blood Count 17.7 TH/MM3 (4.0-11.0) Red Blood Count 4.49 MIL/MM3 (4.50-5.90) Hemoglobin 13.0 GM/DL (13.0-17.0) Hematocrit 38.2 % (39.0-51.0) Mean Corpuscular Volume 85.1 FL (80.0-100.0) Mean Corpuscular Hemoglobin 29.0 PG (27.0-34.0) Mean Corpuscular Hemoglobin Concent 34.1 % (32.0-36.0) Red Cell Distribution Width 14.2 % (11.6-17.2) Platelet Count 316 TH/MM3 (150-450) Mean Platelet Volume 8.8 FL (7.0-11.0) Neutrophils (%) (Auto) 82.4 % (16.0-70.0) Lymphocytes (%) (Auto) 8.1 % (9.0-44.0) Monocytes (%) (Auto) 8.6 % (0.0-8.0) Eosinophils (%) (Auto) 0.2 % (0.0-4.0) Basophils (%) (Auto) 0.7 % (0.0-2.0) Neutrophils # (Auto) 14.6 TH/MM3 (1.8-7.7) Lymphocytes # (Auto) 1.4 TH/MM3 (1.0-4.8) Monocytes # (Auto) 1.5 TH/MM3 (0-0.9) Eosinophils # (Auto) 0.0 TH/MM3 (0-0.4) Basophils # (Auto) 0.1 TH/MM3 (0-0.2) CBC Comment DIFF FINAL Differential Comment Blood Urea Nitrogen 26 MG/DL (7-18) Creatinine 1.19 MG/DL (0.60-1.30) Random Glucose 151 MG/DL (74-106) Calcium Level 8.7 MG/DL (8.5-10.1) Magnesium Level 2.5 MG/DL (1.5-2.5) Sodium Level 134 MEQ/L (136-145) Potassium Level 4.3 MEQ/L (3.5-5.1) Chloride Level 100 MEQ/L (98-107) Carbon Dioxide Level 23.9 MEQ/L (21.0-32.0) Anion Gap 10 MEQ/L (5-15) Estimat Glomerular Filtration Rate 61 ML/MIN (>89) Result Diagram: 01/15/18 0535 01/15/18 0535 Cardiovascular: RRR Telemetry: NSR Pulmonary: Decreased BS bilat GI/: NABS, NT Incision: dry and intact CT: 30ml/12hrs Plan: Remove chest tubes Hold metformin, toradol for slight creat bump Ambulate more today Diurese (1) Atrial fibrillation Plan: on cardizem, heparin (2) Morbid obesity Plan: will need weight loss program 4-6 weeks post surgery, will have corduroy cutting supervisor speak with pt (3) Type 2 diabetes mellitus Plan: cosmetology educator consult HGB A1C 8.3 (4) Non-STEMI (non-ST elevated myocardial infarction) Plan: ASA, statin . heparin (5) Multi-vessel coronary artery stenosis Adelina Rodriguez MD Jan 15, 2018 10:45
[2018-01-15] MEDS: SENNOSIDES 8.6 MG TAB PO SCH (20:21)
[2018-01-15] MEDS: ATORVASTATIN 40 MG TAB PO SCH (20:22)
[2018-01-16] VITALS (25 sets, daily range): BP systolic 113–145; BP diastolic 58–73; PULSE 57–118; RESP 18–20; TEMP 98–98.6; O2SAT 95–99
[2018-01-16] MEDS: oxyCODONE/ACETAMINOPHEN 5 MG/325 MG TAB PO PRN ×2 (00:33→20:08)
[2018-01-16 03:25] LABS: HEMATOCRIT 36.2 % (39.0-51.0); HEMOGLOBIN 12.5 GM/DL (13.0-17.0); MEAN CELL VOLUME 85.6 FL (80.0-100.0); MEAN CORPUSCULAR HEMOGLOBIN 29.5 PG (27.0-34.0); MEAN CORPUSCULAR HGB CONC 34.5 % (32.0-36.0); MEAN PLATELET VOLUME 8.7 FL (7.0-11.0); PLATELET COUNT 338 TH/MM3 (150-450); RED BLOOD COUNT 4.23 MIL/MM3 (4.50-5.90); RED CELL DISTRIBUTION WIDTH 14.2 % (11.6-17.2); WHITE BLOOD COUNT 17.7 TH/MM3 (4.0-11.0)
[2018-01-16] MEDS: LEVOTHYROXINE SODIUM 125 MCG TAB PO SCH (05:18)
[2018-01-16] MEDS: PANTOPRAZOLE SOD 40 MG DELAYED RELEASE TAB PO SCH (05:18)
[2018-01-16] MEDS: RESP: ALBUTEROL 2.5 MG/IPRATROPIUM 0.5 MG NEB (SCH) NEB (07:25)
[2018-01-16] MEDS: INSULIN ASPART SUPPLEMENTAL SCALE SQ SCH ×4 (08:00→20:06)
[2018-01-16] MEDS: FUROSEMIDE 40 MG/4 ML VIAL IV PUSH SCH ×2 (08:28→16:55)
[2018-01-16] MEDS: POLYETHYLENE GLYCOL 17 GM PKG PO SCH (08:29)
[2018-01-16] MEDS: MAGNESIUM HYDROXIDE SUSP 30 ML CUP PO SCH (08:29)
[2018-01-16] MEDS: POTASSIUM CHLORIDE 10 MEQ CONTROLLED RELEASE TAB PO SCH (08:31)
[2018-01-16] MEDS: DOCUSATE SODIUM 100 MG CAP PO SCH ×2 (08:31→20:07)
[2018-01-16] MEDS: MULTIVITAMINS/MINERALS THERAPEUTIC TAB PO SCH (08:31)
[2018-01-16] MEDS: CLOPIDOGREL 75 MG TAB PO SCH (08:31)
[2018-01-16] MEDS: METOPROLOL TARTRATE 25 MG TAB PO SCH (08:31)
[2018-01-16] MEDS: AMIODARONE 200 MG TAB PO SCH ×2 (08:32→16:54)
[2018-01-16] MEDS: DILTIAZEM-CD 240 MG CAP ER PO SCH (08:32)
[2018-01-16] MEDS: FLUTICASONE PROPIONATE 50 MCG/ACT 16 GM NASAL SPRAY EACH NARE SCH ×2 (08:32→20:09)
[2018-01-16] MEDS: ASPIRIN 81 MG CHEW TAB PO SCH (08:32)
[2018-01-16] MEDS: SODIUM CHLORIDE 0.9% FLUSH 10 ML FLUSH IV FLUSH SCH ×2 (08:55→20:09)
[2018-01-16] MEDS: LORATADINE 10 MG TAB PO SCH (08:55)
--- NOTE | 2018-01-16 11:15 | RADRPT ---
EXAM DATE/TIME: 01/16/2018 09:33 [facility] COMPARISON: CHEST SINGLE AP, January 14, 2018, 4:09. INDICATIONS : Evaluate for pneumothorax, post chest tube removal. MEDICAL HISTORY : Hypertension. Carcinoma, prostatic. Diabetes mellitus type II. SURGICAL HISTORY : CABG. Tonsillectomy. ENCOUNTER: Subsequent ACUITY: 4 - 6 days PAIN SCORE: 0/10 LOCATION: Bilateral chest FINDINGS: Left chest drainage tube has been removed. No evidence of pneumothorax. Right lung is clear. Persi stent opacity in the retrocardiac left lower lung similar to prior. Stable cardiomegaly. Evidence o f prior median sternotomy. CONCLUSION: No evidence of pneumothorax status post removal left chest drainage tube. Jason Snowden MD on January 16, 2018 at 11:13 Board Certified Radiologist. This report was verified electronically.
--- NOTE | 2018-01-16 13:56 | PD.CAR.PN ---
CVT Progress Note Subjective/Hospital Course: A 67-year-old male that is visiting the area for the races from [place], [place], was driving down on Tuesday, stopped at a gas station, was pumping gas in [place] when he noticed some palpitations, became short of breath, had some diaphoresis. Lasted for approximately half an hour and later on developed a little bit of discomfort to his midsternum. Once he arrived in [facility] and went to his motel, he woke up Tuesday, showered and just did not feel very well, had some discomfort, had a little fluttering in his chest and it did not feel right. He came into the emergency room and was found to be in atrial fibrillation with RVR. He received some IV Cardizem which brought his heart rate back down to a normal rate. His chest discomfort was better, however, initial troponin was 13 at its highest. His BNP was 410. He was ruled in for non -ST-segment [place]. He was evaluated by Dr. Enrique Lopez and underwent cardiac cath this morning which showed a 25% left main disease, the diagonal branch had a 50% stenosis, the LAD descending artery just past the first septal and first diagonal had a complex long severe stenosis at least 95% with some evidence of ulceration. There was a large ramus branch which had only some irregularities, the circ had about 40% mid stenosis, the RCA had a 90% ostial and proximal stenosis. We were consulted to evaluate for coronary artery bypass grafting. The patient also underwent 2-D echocardiogram which showed ejection fraction of 50-55%, no valvular heart disease. PAST MEDICAL HISTORY: Newly diagnosed diabetes mellitus ( HGB A1C 8.3) , Hypertension, Hypothyroidism and he takes levothyroxine, Morbidly obese with a BMI of 48, Cryo procedure for prostate cancer at [facility]. 01/12 carotid US ok US lowr ext ( bilateral bakers cyst) afib last pm, started on IV cardizem, now weaned off, dc IV fluids continue Heparin gtt for surgery in am 01/14/18 Doing well No complaints 01/15/18 No complaints, doing well AFIB last night - converted 01/16 back into afib rate 98-110 start eliquis/ dc plavix, increase BB and po amiodarone continue pulm toileting eval for rehab placement / possible in am Objective: GENERAL: A&) x3 SKIN: Warm and dry. prevena dressing to chest , incision intact left leg HEAD: Normocephalic. EYES: No scleral icterus. No injection or drainage. NECK: Supple, trachea midline. No JVD or lymphadenopathy. CARDIOVASCULAR: irregular rate and rhythm murmurs, gallops, or rubs. egular rate a RESPIRATORY: Breath sounds equal bilaterally. No accessory muscle use. diminished in bases , + 2 edema lower ext GASTROINTESTINAL: Abdomen soft, non-tender, nondistended. MUSCULOSKELETAL: No cyanosis, or edema. BACK: Nontender without obvious deformity. No CVA tenderness. Vital Signs Date Time Temp Pulse Resp B/P (MAP) Pulse Ox O2 Delivery O2 Flow Rate FiO2 01/16/18 13:00 87 01/16/18 12:00 110 01/16/18 11:00 98.1 112 20 129/73 (91) 96 01/16/18 11:00 105 01/16/18 10:00 110 01/16/18 09:00 118 01/16/18 08:00 113 01/16/18 07:30 105 01/16/18 07:30 98.6 105 20 127/73 (91) 95 01/16/18 07:26 95 21 01/16/18 06:00 98 01/16/18 05:00 102 01/16/18 04:02 101 01/16/18 03:00 108 01/16/18 03:00 98.1 96 20 145/67 (93) 99 01/16/18 02:00 105 01/16/18 01:09 17 01/16/18 01:04 114 01/16/18 00:00 106 01/15/18 23:43 98.6 94 20 107/57 (74) 94 01/15/18 23:00 114 01/15/18 22:00 101 01/15/18 21:00 92 01/15/18 20:42 94 21 01/15/18 20:00 112 01/15/18 19:00 98.4 98 18 124/72 (89) 94 01/15/18 19:00 119 01/15/18 18:00 76 01/15/18 17:00 70 01/15/18 16:01 76 01/15/18 16:00 78 01/15/18 15:22 97.7 75 18 132/54 (80) 95 01/15/18 15:00 73 Labs: Laboratory Tests Test 01/16/18 03:10 White Blood Count 17.7 TH/MM3 (4.0-11.0) Red Blood Count 4.23 MIL/MM3 (4.50-5.90) Hemoglobin 12.5 GM/DL (13.0-17.0) Hematocrit 36.2 % (39.0-51.0) Mean Corpuscular Volume 85.6 FL (80.0-100.0) Mean Corpuscular Hemoglobin 29.5 PG (27.0-34.0) Mean Corpuscular Hemoglobin Concent 34.5 % (32.0-36.0) Red Cell Distribution Width 14.2 % (11.6-17.2) Platelet Count 338 TH/MM3 (150-450) Mean Platelet Volume 8.7 FL (7.0-11.0) Result Diagram: 01/16/18 0310 01/15/18 0535 Telemetry: afib (1) Atrial fibrillation Plan: amiodarone increased, BB increased check labs in am (2) Morbid obesity Plan: will need weight loss program 4-6 weeks post surgery, will have cocoa bean roaster helper speak with pt (3) Type 2 diabetes mellitus Plan: nurse informatics educator consult / pending start metformin will need insulin sliding scale at discharge HGB A1C 8.3 (4) Non-STEMI (non-ST elevated myocardial infarction) Plan: ASA, statin . (5) Multi-vessel coronary artery stenosis (6) S/P CABG x 2 Plan: on ASA, statin , BB OOB ambulate sternal precautions CM to eval for placement Vandana Waddell Jan 16, 2018 13:56
[2018-01-16] MEDS: metFORMIN HCL 500 MG TAB PO SCH (16:55)
[2018-01-16] MEDS: METOPROLOL TARTRATE 50 MG TAB PO SCH (20:07)
[2018-01-16] MEDS: ATORVASTATIN 40 MG TAB PO SCH (20:07)
[2018-01-16] MEDS: SENNOSIDES 8.6 MG TAB PO SCH (20:07)
[2018-01-16] MEDS: APIXABAN 5 MG TABLET PO SCH (20:07)
[2018-01-17] VITALS (25 sets, daily range): BP systolic 110–132; BP diastolic 53–67; PULSE 55–94; RESP 16–18; TEMP 97.3–98.5; O2SAT 90–98
[2018-01-17] MEDS: AMIODARONE 200 MG TAB PO SCH ×3 (01:15→17:05)
[2018-01-17] MEDS: LEVOTHYROXINE SODIUM 125 MCG TAB PO SCH (05:17)
[2018-01-17] MEDS: PANTOPRAZOLE SOD 40 MG DELAYED RELEASE TAB PO SCH (05:17)
[2018-01-17 06:17] LABS: BICARBONATE 23.2 MEQ/L (21.0-32.0); CALCIUM 8.1 MG/DL (8.5-10.1); CREATININE 1.15 MG/DL (0.60-1.30); MAGNESIUM 2.2 MG/DL (1.5-2.5)
[2018-01-17 06:45] LABS: AUTOMATED NEUTROPHIL # 10.7 TH/MM3 (1.8-7.7); BASOPHIL # 0.1 TH/MM3 (0-0.2); BASOPHIL % 0.6 % (0.0-2.0); EOSINOPHIL # 0.3 TH/MM3 (0-0.4); EOSINOPHIL % 2.2 % (0.0-4.0); HEMATOCRIT 31.3 % (39.0-51.0); HEMOGLOBIN 10.6 GM/DL (13.0-17.0); LYMPH % 13.3 % (9.0-44.0); LYMPHOCYTE # 1.9 TH/MM3 (1.0-4.8); MEAN CELL VOLUME 85.2 FL (80.0-100.0); MEAN PLATELET VOLUME 9.2 FL (7.0-11.0); MONO % 8.8 % (0.0-8.0); MONOCYTE # 1.3 TH/MM3 (0-0.9); NEUT % 75.1 % (16.0-70.0); PLATELET COUNT 300 TH/MM3 (150-450); RED BLOOD COUNT 3.67 MIL/MM3 (4.50-5.90); RED CELL DISTRIBUTION WIDTH 14.1 % (11.6-17.2); WHITE BLOOD COUNT 14.3 TH/MM3 (4.0-11.0)
[2018-01-17] MEDS: POLYETHYLENE GLYCOL 17 GM PKG PO SCH (08:25)
[2018-01-17] MEDS: INSULIN ASPART SUPPLEMENTAL SCALE SQ SCH ×4 (08:26→20:42)
[2018-01-17] MEDS: metFORMIN HCL 500 MG TAB PO SCH ×2 (08:26→17:05)
[2018-01-17] MEDS: METOPROLOL TARTRATE 50 MG TAB PO SCH ×2 (08:26→20:43)
[2018-01-17] MEDS: FUROSEMIDE 40 MG/4 ML VIAL IV PUSH SCH ×2 (08:26→17:04)
[2018-01-17] MEDS: MULTIVITAMINS/MINERALS THERAPEUTIC TAB PO SCH (08:26)
[2018-01-17] MEDS: ASPIRIN 81 MG CHEW TAB PO SCH (08:27)
[2018-01-17] MEDS: DOCUSATE SODIUM 100 MG CAP PO SCH ×2 (08:27→20:42)
[2018-01-17] MEDS: APIXABAN 5 MG TABLET PO SCH ×2 (08:27→20:43)
[2018-01-17] MEDS: FLUTICASONE PROPIONATE 50 MCG/ACT 16 GM NASAL SPRAY EACH NARE SCH ×2 (08:27→20:43)
[2018-01-17] MEDS: SODIUM CHLORIDE 0.9% FLUSH 10 ML FLUSH IV FLUSH SCH ×2 (08:28→20:43)
[2018-01-17] MEDS: MAGNESIUM HYDROXIDE SUSP 30 ML CUP PO SCH (08:29)
[2018-01-17] MEDS: DILTIAZEM-CD 240 MG CAP ER PO SCH (08:45)
[2018-01-17] MEDS: LORATADINE 10 MG TAB PO SCH (08:45)
[2018-01-17] MEDS ORDERED: METO-309 PO (14:02)
[2018-01-17] MEDS ORDERED: DILT240C44 PO (14:02)
[2018-01-17] MEDS ORDERED: OXYC1TAB63 PO (14:02)
[2018-01-17] MEDS ORDERED: POLY17S PO (14:02)
[2018-01-17] MEDS ORDERED: GLUCTES12 (14:02)
[2018-01-17] MEDS ORDERED: GLUCKIT15 (14:02)
[2018-01-17] MEDS ORDERED: POTA-163 PO (14:02)
[2018-01-17] MEDS ORDERED: DOCU1CAP39 PO (14:02)
[2018-01-17] MEDS ORDERED: LANCETS1 MI1 (14:02)
[2018-01-17] MEDS ORDERED: FURO1TAB60 PO (14:02)
[2018-01-17] MEDS ORDERED: APIX5TAB PO (14:02)
[2018-01-17] MEDS ORDERED: ATOR40TA16 PO (14:02)
[2018-01-17] MEDS ORDERED: AMIO200T PO (14:02)
[2018-01-17] MEDS ORDERED: NOVOLOGP2 SQ (14:02)
[2018-01-17] MEDS ORDERED: ASPI81 PO (14:02)
[2018-01-17] MEDS ORDERED: THERM PO (14:02)
[2018-01-17] MEDS ORDERED: INSU1MIS15 (14:02)
--- NOTE | 2018-01-17 14:18 | HHI.DS ---
Discharge Summary Admission Date Jan 10, 2018 at 17:20 Discharge Date: Jan 17, 2018 Admitting Diagnosis atrial flutter with RVR, elevated troponin (1) Atrial flutter with rapid ventricular response Diagnosis: Principal ICD Codes: I48.92 - Unspecified atrial flutter Status: Acute (2) Elevated troponin Diagnosis: Principal ICD Codes: R74.8 - Abnormal levels of other serum enzymes Status: Acute (3) Hyperglycemia Diagnosis: Principal ICD Codes: R73.9 - Hyperglycemia, unspecified Status: Acute (4) Non-STEMI (non-ST elevated myocardial infarction) Diagnosis: Principal ICD Codes: I21.4 - Non-ST elevation (NSTEMI) myocardial infarction (5) Multi-vessel coronary artery stenosis ICD Codes: I25.10 - Atherosclerotic heart disease of [place] coronary artery without angina pectoris (6) Type 2 diabetes mellitus Diagnosis: Principal ICD Codes: E11.9 - Type 2 diabetes mellitus without complications (7) S/P CABG x 2 Diagnosis: Secondary ICD Codes: Z95.1 - Presence of aortocoronary bypass graft Procedures 01/13 1. Urgent Off-pump Coronary Artery Bypass Grafting x 2 with Left Internal Mammary Artery (CANTU) to the Left Anterior Descending (LAD), reverse saphenous vein graft to the Right Coronary Artery (RCA) 2. Intraoperative Vein Mapping 3. Left Leg Endoscopic Vein Downey 4. Biomet Sterna-Lock Sternal Plating System Brief History A 67-year-old male that is visiting the area for the races from [place], [place], was driving down on Tuesday, stopped at a gas station, was pumping gas in [place] when he noticed some palpitations, became short of breath, had some diaphoresis. Lasted for approximately half an hour and later on developed a little bit of discomfort to his midsternum. Once he arrived in [facility] and went to his motel, he woke up Tuesday morning, showered and just did not feel very well, had some discomfort, had a little fluttering in his chest and it did not feel right. He came into the emergency room and was found to be in atrial fibrillation with RVR. He received some IV Cardizem which brought his heart rate back down to a normal rate. His chest discomfort was better, however, initial troponin was 13 at its highest. His BNP was 410. He was ruled in for non -ST-segment [place]. He was evaluated by Dr. Enrique Lopez and underwent cardiac cath this morning which showed a 25% left main disease, the diagonal branch had a 50% stenosis, the LAD descending artery just past the first septal and first diagonal had a complex long severe stenosis at least 95% with some evidence of ulceration. There was a large ramus branch which had only some irregularities, the circ had about 40% mid stenosis, the RCA had a 90% ostial and proximal stenosis. We were consulted to evaluate for coronary artery bypass grafting. The patient also underwent 2-D echocardiogram which showed ejection fraction of 50-55%, no valvular heart disease. PAST MEDICAL HISTORY: Newly diagnosed diabetes mellitus ( HGB A1C 8.3) , Hypertension, Hypothyroidism and he takes levothyroxine, Morbidly obese with a BMI of 48, Cryo procedure for prostate cancer at [facility]. CBC/BMP: 01/17/188 01/17/18417 Significant Findings Laboratory Tests Test 01/15/18 05:35 01/16/18 03:10 01/17/18 04:18 White Blood Count 17.7 TH/MM3 (4.0-11.0) 17.7 TH/MM3 (4.0-11.0) 14.3 TH/MM3 (4.0-11.0) Red Blood Count 4.49 MIL/MM3 (4.50-5.90) 4.23 MIL/MM3 (4.50-5.90) 3.67 MIL/MM3 (4.50-5.90) Hematocrit 38.2 % (39.0-51.0) 36.2 % (39.0-51.0) 31.3 % (39.0-51.0) Neutrophils (%) (Auto) 82.4 % (16.0-70.0) 75.1 % (16.0-70.0) Lymphocytes (%) (Auto) 8.1 % (9.0-44.0) Monocytes (%) (Auto) 8.6 % (0.0-8.0) 8.8 % (0.0-8.0) Neutrophils # (Auto) 14.6 TH/MM3 (1.8-7.7) 10.7 TH/MM3 (1.8-7.7) Monocytes # (Auto) 1.5 TH/MM3 (0-0.9) 1.3 TH/MM3 (0-0.9) Blood Urea Nitrogen 26 MG/DL (7-18) 37 MG/DL (7-18) Random Glucose 151 MG/DL (74-106) 174 MG/DL (74-106) Sodium Level 134 MEQ/L (136-145) 133 MEQ/L (136-145) Estimat Glomerular Filtration Rate 61 ML/MIN (>89) 64 ML/MIN (>89) Hemoglobin 12.5 GM/DL (13.0-17.0) 10.6 GM/DL (13.0-17.0) Calcium Level 8.1 MG/DL (8.5-10.1) Imaging Last Impressions Chest X-Ray 01/16/18 0930 Signed Impressions: Service Date/Time: Tuesday, January 16, 2018 09:33 - CONCLUSION: No evidence of pneumothorax status post removal left chest drainage tube. Jason Snowden MD Lower Extremity Ultrasound 01/11/18 0000 Signed Impressions: Service Date/Time: Thursday, January 11, 2018 17:15 - CONCLUSION: Measurements as above with a varicose vein on the right side coming off the greater saphenous vein. Tavon Hernadez MD Carotid Artery Ultrasound 01/11/18 0000 Signed Impressions: Service Date/Time: Thursday, January 11, 2018 16:18 - CONCLUSION: No evidence for hemodynamically significant stenosis. Tavon Hernadez MD CT Angiography 01/10/18 1417 Signed Impressions: Service Date/Time: Wednesday, January 10, 2018 15:50 - CONCLUSION: 1. No acute intrathoracic process. In particular, no pulmonary emboli. 2. Significant coronary artery and aortic atherosclerotic calcifications. Jason Vega Jr., MD PE at Discharge GENERAL: A7O x 3 SKIN: Warm and dry. Prevena dressing to chest, incision intact left EVH web site specialist: Atraumatic. Normocephalic. EYES: Pupils equal and round. No scleral icterus. No injection or drainage. ENT: No nasal bleeding or discharge. Mucous membranes pink and moist. NECK: Trachea midline. No JVD. CARDIOVASCULAR: Regular rate and rhythm. + 2-3 edema lower ext RESPIRATORY: No accessory muscle use. Clear to auscultation. Breath sounds equal bilaterally. GASTROINTESTINAL: Abdomen soft, non-tender, nondistended. Hepatic and splenic margins not palpable. MUSCULOSKELETAL: Extremities without clubbing, cyanosis, or edema. No obvious deformities. NEUROLOGICAL: Awake and alert. No obvious cranial nerve deficits. Motor grossly within normal limits. Five out of 5 muscle strength in the arms and legs. Normal speech. PSYCHIATRIC: Appropriate mood and affect; insight and judgment normal. Hospital Course 01/12 carotid US ok US lowr ext ( bilateral bakers cyst) afib last pm, started on IV cardizem, now weaned off, dc IV fluids continue Heparin gtt for surgery in am Operative Report Date of Surgery: Jan 13, 2018 Preoperative Diagnosis: Postoperative Diagnosis: Procedure: 1. Urgent Off-pump Coronary Artery Bypass Grafting x 2 with Left Internal Mammary Artery (CANTU) to the Left Anterior Descending (LAD), reverse saphenous vein graft to the Right Coronary Artery (RCA) 2. Intraoperative Vein Mapping 3. Left Leg Endoscopic Vein Downey 4. Biomet Sterna-Lock Sternal Plating System 01/14/18 Doing well No complaints 01/15/18 No complaints, doing well AFIB last night - converted 01/16 back into afib rate 98-110 start eliquis/ dc plavix, increase BB and po amiodarone continue pulm toileting eval for rehab placement / possible in am 01/17 doing well back in NSR will continue eliquis taper dose amiodarone + 2 edema lower ext, will need to dc on po lasix para educator has met with pt will dc to rehab Pt Condition on Discharge: Good Discharge Disposition: Discharge to SNF Discharge Instructions DIET: Follow Instructions for: Heart Healthy Diet, Diabetic Diet Activities you can perform: Weight Bearing as [place], Shower Only-No Bath Activities to avoid: Strenuous Activity, Driving Additional Activity Instructio: no lifting > 8 lbs or gallon of milk Follow up Referrals: Cardiology - 3 Weeks with Enrique Lopez MD Diabetic Education PCP Follow-up - [address] Ga Pickens [address] [place] [address] [address] [facility] [id number] Surgical - 2 Weeks with Vandana Waddell New Medications: Blood Glucose Monitoring W/Device (Glucocom Blood Glucose Mo W/Device) 1 Kit Kit KIT .XX DIRECTED for Blood Sugar Management, #1 Furosemide (Lasix) 40 Mg Tab 40 MG PO DAILY for edema, #14 TAB 0 Refills Glucocom Test Strips (Glucocom Test Strips) 1 Arielle Arielle EA .XX DIRECTED for Blood Sugar Management, #1 Insulin Aspart Inj (Novolog Inj) 1,000 Unit/10 Ml Vial 1-9 UNITS SQ ACHS for Blood Sugar Management, #10 ML 0 Refills Max dose at bedtime:( )units; sugars less than 70,(0)units; sugars 150-199,(1) unit; sugars 200-249,(3) units; sugars 250-299,(5) units; sugars 300-349,(7) units; sugars greater than 349,(9) units Insulin Syringe/U-100/31G X 5/16" 1 ml (Insulin Syringe/U-100/31G X 5/16" 1 ml) 31 Gauge X 5/16" Mis EA .XX DIRECTED for Blood Sugar Management, #1 0 Refills Lancets (Lancets) 1 Mis Mis EA .XX DIRECTED for Blood Sugar Management, #1 0 Refills Potassium Chloride ER (Potassium Chloride ER) 20 Meq Tab 20 MEQ PO DAILY for Electrolyte Replacement, #14 TAB 0 Refills Amiodarone (Amiodarone) 200 Mg Tab 400 MG PO Q12H for heart rhythm, #40 TAB 400mg bid x 3 days, then 200mg bid x 3 days, then 200mg daily x 21, then dc Apixaban (Eliquis) 5 Mg Tab 5 MG PO BID for Blood Clot Prevention, #60 TAB 2 Refills Aspirin (Tgt Aspirin) 81 Mg Chw 81 MG PO DAILY for Blood Clot Prevention, #30 EA 2 Refills Atorvastatin (Atorvastatin) 40 Mg Tab 40 MG PO HS for Cholesterol Management, #30 TAB 2 Refills Diltiazem CD 24 HR (Diltiazem CD 24 HR) 240 Mg Caper 240 MG PO DAILY for Blood Pressure Management, #30 CAP 2 Refills Docusate Sodium (Dok) 100 Mg Cap 100 MG PO BID for Constipation, #60 CAP Metoprolol Tartrate (Lopressor) 50 Mg Tab 50 MG PO Q12HR for Blood Pressure Management, #60 TAB 2 Refills Multiple Vitamins W/ Minerals (Thera M Plus) 1 Tab 1 TAB PO DAILY for multi vitamin, #30 TAB 2 Refills Oxycodone HCl/Acetaminophen (Oxycodone-Acetaminophen 5-325) 5 Mg-325 Mg Tablet 1 TAB PO Q4H PRN for PAIN SCALE 1 TO 10, #40 TAB 0 Refills Polyethylene Glycol 3350 Powder (Polyethylene Glycol 3350 Powder) 17 Gram Pow 17 GM PO DAILY for Constipation, #30 PACKET 0 Refills Continued Medications: Fexofenadine (Adrienne Allergy) 180 Mg Tab 180 MG PO DAILY for Allergy Management, #30 TAB 0 Refills Fluticasone Nasal [place] (Flonase Nasal [place]) 50 Mcg/Act [place] 100 MCG EACH NARE BID for Allergies, #1 BOTTLE 0 Refills Levothyroxine (Levothyroxine) 125 Mcg Tab 125 MCG PO DAILY for Thyroid, #30 TAB 0 Refills Metformin (Metformin) 1,000 Mg Tab 1000 MG PO BIDPC for Blood Sugar Management, #60 TAB 0 Refills Discontinued Medications: Lisinopril-Hctz (Lisinopril-Hctz) 20-12.5 Mg Tab 1 TAB PO DAILY for Blood Pressure Management, #30 TAB 0 Refills Vandana Waddell Jan 17, 2018 14:18
[2018-01-17] MEDS: oxyCODONE/ACETAMINOPHEN 5 MG/325 MG TAB PO PRN (19:04)
[2018-01-17] MEDS: SENNOSIDES 8.6 MG TAB PO SCH (20:42)
[2018-01-17] MEDS: ATORVASTATIN 40 MG TAB PO SCH (20:43)
[2018-01-18] VITALS (17 sets, daily range): BP systolic 109–122; BP diastolic 57–65; PULSE 50–58; RESP 16–18; TEMP 97.6–98.4; O2SAT 93–96
[2018-01-18] MEDS: AMIODARONE 200 MG TAB PO SCH
[2018-01-18] MEDS: oxyCODONE/ACETAMINOPHEN 5 MG/325 MG TAB PO PRN (00:56)
[2018-01-18] MEDS: LEVOTHYROXINE SODIUM 125 MCG TAB PO SCH (05:18)
[2018-01-18] MEDS: PANTOPRAZOLE SOD 40 MG DELAYED RELEASE TAB PO SCH (05:18)
[2018-01-18] MEDS: FLUTICASONE PROPIONATE 50 MCG/ACT 16 GM NASAL SPRAY EACH NARE SCH (09:00)
[2018-01-18] MEDS: MAGNESIUM HYDROXIDE SUSP 30 ML CUP PO SCH (09:00)
[2018-01-18] MEDS: POLYETHYLENE GLYCOL 17 GM PKG PO SCH (09:00)
[2018-01-18] MEDS: ASPIRIN 81 MG CHEW TAB PO SCH (09:14)
[2018-01-18] MEDS: LORATADINE 10 MG TAB PO SCH (09:14)
[2018-01-18] MEDS: MULTIVITAMINS/MINERALS THERAPEUTIC TAB PO SCH (09:15)
[2018-01-18] MEDS: METOPROLOL TARTRATE 50 MG TAB PO SCH (09:15)
[2018-01-18] MEDS: metFORMIN HCL 500 MG TAB PO SCH (09:15)
[2018-01-18] MEDS: DOCUSATE SODIUM 100 MG CAP PO SCH (09:15)
[2018-01-18] MEDS: APIXABAN 5 MG TABLET PO SCH (09:15)
[2018-01-18] MEDS: DILTIAZEM-CD 240 MG CAP ER PO SCH (09:16)
[2018-01-18] MEDS: SODIUM CHLORIDE 0.9% FLUSH 10 ML FLUSH IV FLUSH SCH (09:17)
[2018-01-18] MEDS: FUROSEMIDE 40 MG/4 ML VIAL IV PUSH SCH (09:17)
[2018-01-18] MEDS: INSULIN ASPART SUPPLEMENTAL SCALE SQ SCH ×2 (09:18→12:00)
[2018-01-18] MEDS ORDERED: AMIO200T PO (10:12)
--- NOTE | 2018-01-18 10:20 | PD.CAR.PN ---
CVT Progress Note Subjective/Hospital Course: A 67-year-old male that is visiting the area for the races from [place], [place], was driving down on Tuesday, stopped at a gas station, was pumping gas in [place] when he noticed some palpitations, became short of breath, had some diaphoresis. Lasted for approximately half an hour and later on developed a little bit of discomfort to his midsternum. Once he arrived in [facility] and went to his motel, he woke up Tuesday, showered and just did not feel very well, had some discomfort, had a little fluttering in his chest and it did not feel right. He came into the emergency room and was found to be in atrial fibrillation with RVR. He received some IV Cardizem which brought his heart rate back down to a normal rate. His chest discomfort was better, however, initial troponin was 13 at its highest. His BNP was 410. He was ruled in for non -ST-segment [place]. He was evaluated by Dr. Enrique Lopez and underwent cardiac cath this morning which showed a 25% left main disease, the diagonal branch had a 50% stenosis, the LAD descending artery just past the first septal and first diagonal had a complex long severe stenosis at least 95% with some evidence of ulceration. There was a large ramus branch which had only some irregularities, the circ had about 40% mid stenosis, the RCA had a 90% ostial and proximal stenosis. We were consulted to evaluate for coronary artery bypass grafting. The patient also underwent 2-D echocardiogram which showed ejection fraction of 50-55%, no valvular heart disease. PAST MEDICAL HISTORY: Newly diagnosed diabetes mellitus ( HGB A1C 8.3) , Hypertension, Hypothyroidism and he takes levothyroxine, Morbidly obese with a BMI of 48, Cryo procedure for prostate cancer at [facility]. 01/12 carotid US ok US lowr ext ( bilateral bakers cyst) afib last pm, started on IV cardizem, now weaned off, dc IV fluids continue Heparin gtt for surgery in am 01/14/18 Doing well No complaints 01/15/18 No complaints, doing well AFIB last night - converted 01/16 back into afib rate 98-110 start eliquis/ dc plavix, increase BB and po amiodarone continue pulm toileting eval for rehab placement / possible in am 01/17 discharge summary completed 01/18 waiting on authorization with insurance for SNF will decrease amiodarone dose, pt on room air stable for discharge Objective: GENERAL: A&O x 3 SKIN: Warm and dry. prevena dressing to chest incision intact ot leg HEAD: Normocephalic. EYES: No scleral icterus. No injection or drainage. NECK: Supple, trachea midline. No JVD or lymphadenopathy. CARDIOVASCULAR: Regular rate and rhythm without murmurs, gallops, or rubs. + 2 edema lower ext RESPIRATORY: Breath sounds equal bilaterally. No accessory muscle use. GASTROINTESTINAL: Abdomen soft, non-tender, nondistended. MUSCULOSKELETAL: No cyanosis, or edema. BACK: Nontender without obvious deformity. No CVA tenderness. Vital Signs Date Time Temp Pulse Resp B/P (MAP) Pulse Ox O2 Delivery O2 Flow Rate FiO2 01/18/18 06:01 56 01/18/18 05:06 56 01/18/18 04:00 53 01/18/18 03:00 97.6 55 18 109/57 (74) 96 01/18/18 03:00 54 01/18/18 02:13 18 01/18/18 02:00 54 01/18/18 01:00 55 01/18/18 00:00 53 01/17/18 23:00 98.0 59 18 117/53 (74) 94 01/17/18 23:00 55 01/17/18 22:05 58 01/17/18 21:05 21 01/17/18 21:00 56 01/17/18 20:00 64 01/17/18 19:10 97.7 70 18 122/60 (80) 97 01/17/18 19:00 65 01/17/18 18:00 66 01/17/18 17:00 62 01/17/18 16:21 59 01/17/18 15:00 98.5 78 17 121/67 (85) 94 01/17/18 15:00 67 01/17/18 14:00 80 01/17/18 13:00 90 01/17/18 12:00 85 01/17/18 11:00 97.7 88 16 122/59 (80) 95 01/17/18 11:00 94 Result Diagram: 01/17/18 0418 01/17/18417 (1) Atrial fibrillation Plan: amiodarone decreased , BB increased check labs this am (2) Morbid obesity Plan: will need weight loss program 4-6 weeks post surgery, will have dairy nutrition consultant speak with pt (3) Type 2 diabetes mellitus Plan: parent educator consult / pending increase metformin will need insulin sliding scale at discharge HGB A1C 8.3 (4) Non-STEMI (non-ST elevated myocardial infarction) Plan: ASA, statin . (5) Multi-vessel coronary artery stenosis (6) S/P CABG x 2 Plan: on ASA, statin , BB OOB ambulate sternal precautions CM to eval for placement Vandana Waddell Jan 18, 2018 10:20
[2018-01-18] MEDS ORDERED: metFORMIN HCL 500 MG TAB PO ONE (10:30)
[2018-01-18 11:42] LABS: BICARBONATE 23.8 MEQ/L (21.0-32.0); CALCIUM 8.5 MG/DL (8.5-10.1); CREATININE 1.4 MG/DL (0.60-1.30); MAGNESIUM 2.3 MG/DL (1.5-2.5)
[2018-01-18] MEDS ORDERED: AMIODARONE 200 MG TAB PO SCH ×2 (13:00)
[2018-01-18] MEDS ORDERED: metFORMIN HCL 850 MG TAB PO SCH (18:00)
== END 2018-01-18 14:30 | DRG 234 ==
LOC: NEPE 13:44 → NEDA 17:20 → NEDH 23:15 → HCPC 01-11 14:56 → HCVI 01-13 → HCPC 01-15 11:45
PROVIDERS: ADMIT Thoracic Surgery (Cardiothoracic Vascular Surgery); ATTEND Thoracic Surgery (Cardiothoracic Vascular Surgery)
PROC: 4A023N7 Measurement of Cardiac Sampling and Pressure, Left Heart, Percutaneous Approach (ICD-10-PCS; 2018-01-11)
PROC: B2111ZZ Fluoroscopy of Multiple Coronary Arteries using Low Osmolar Contrast (ICD-10-PCS; 2018-01-11)
PROC: B2151ZZ Fluoroscopy of Left Heart using Low Osmolar Contrast (ICD-10-PCS; 2018-01-11)
PROC: 021009W Bypass Coronary Artery, One Artery from Aorta with Autologous Venous Tissue, Open Approach (ICD-10-PCS; 2018-01-13)
PROC: 06BQ4ZZ Excision of Left Saphenous Vein, Percutaneous Endoscopic Approach (ICD-10-PCS; 2018-01-13)
PROC: 02100Z9 Bypass Coronary Artery, One Artery from Left Internal Mammary, Open Approach (ICD-10-PCS; principal; 2018-01-13 07:27)
DX: I21.4 Non-ST elevation (NSTEMI) myocardial infarction (principal); Z68.42 Body mass index [BMI] 45.0-49.9, adult; I48.92 Unspecified atrial flutter; E11.65 Type 2 diabetes mellitus with hyperglycemia; I48.91 Unspecified atrial fibrillation; I25.110 Atherosclerotic heart disease of native coronary artery with unstable angina pectoris; E66.01 Morbid (severe) obesity due to excess calories; I10 Essential (primary) hypertension; E03.9 Hypothyroidism, unspecified; M71.22 Synovial cyst of popliteal space [Baker], left knee; M71.21 Synovial cyst of popliteal space [Baker], right knee; Z79.84 Long term (current) use of oral hypoglycemic drugs; Z79.82 Long term (current) use of aspirin; Z85.46 Personal history of malignant neoplasm of prostate
CPT/HCPCS: 71045; 71046; 71275; 80048; 80053; 80061; 81001; 82550; 82552; 82948; 83036; 83735; 83880; 84436; 84443; 84481; 84484; 85025; 85027; 85610; 85730; 86850; 86900; 86901; 86920; 87641; 93005; 93306; 93458; 93880; 93970; 93998; 94002; 94010; 94150; 94640; 94664; 94667; 94668; 96361; 96365; 96375; 96376; 99152; 99153; C1769; C1893; C9248; J0131; J0282; J0360; J0690; J1644; J1815; J1817; J1885; J1940; J2250; J2440; J3010; J3370; J3475; J3480; J7030; J7040; Q9967